=== PATIENT | female | born 1935 | race Caucasian/White ===

== ENCOUNTER 2019-10-24 18:58 | Outpatient (REF) | payer MEDICARE, BC, SELFPAY ==
[2019-10-24 19:59] LABS: Blood Urea Nitrogen 41 mg/dL (8-23); Calcium 9.5 mg/dL (8.5-10.5); Carbon Dioxide 22 mmol/L (22-29); Chloride 91 mmol/L (98-107); Glucose 136 mg/dL (65-115); NT Pro B Type Natriuretic Pept 5068 pg/mL (0-450); Osmolality Calculated 262 mOsm/kg (285-295); Sodium 126 mmol/L (136-145)
== END 2019-10-24 18:59 | disposition home or self-care (01) ==
LOC: LAB 18:58
PROVIDERS: Family Provider Family Medicine; PCP Family Medicine; Visit Provider Family Medicine
DX: Z01.89 Encounter for other specified special examinations (principal)
CPT/HCPCS: 80048; 83880

== ENCOUNTER 2020-01-23 21:09 | Inpatient (IN) | payer MEDICARE, BC, SELFPAY ==
[2020-01-23] VITALS (28 sets, daily range): BP systolic 132–144; BP diastolic 50–71; PULSE 31–46; RESP 16; O2SAT 72–100; BMI 29.5
--- NOTE | 2020-01-23 21:23 | CTR_ITS ---
PROCEDURE INFORMATION: Exam: CT Head Without Contrast Exam date and time: 01/23/2020 9:25 PM Age: 84 years old Clinical indication: Altered mental status/memory loss; Additional info: AMS TECHNIQUE: Imaging protocol: Computed tomography of the head without contrast. Radiation optimization: All CT scans at this facility use at least one of these dose optimization techniques: automated exposure control; mA and/or kV adjustment per patient size (includes targeted exams where dose is matched to clinical indication); or iterative reconstruction. COMPARISON: CT head wo con* [id number] 03/17/2019 5:21 PM RADIATION DOSE METRICS: Total DLP: 1907.54 mGy-cm FINDINGS: Brain: Advanced microangiopathy is noted in the frontal and parietal white matter and is greater on the right. There is generalized sulcal widening and ventricular enlargement throughout the cranial cavity. Ventricles: Ex vacuo dilatation. Bones/joints: Unremarkable. No acute fracture. Sinuses: Visualized sinuses are unremarkable. No fluid levels. Mastoid air cells: Visualized mastoid air cells are well aerated. Soft tissues: Unremarkable. Other findings: Moderately severe motion artifacts are present. Overall no significant change since March 2019. CT/CT head wo con* [id number] IMPRESSION: 1. No acute intracranial findings. 2. Advanced age related changes Radiation Dose CTDIVOL = (mGy): DLP = 1907.54 (mGy-cm)
--- NOTE | 2020-01-23 21:23 | XR_ITS ---
WS: [id number] XR chest 1V portable [id number] REASON FOR EXAM: ams FINDINGS: Comparisons were made to March 17, 2019. Diffuse perihilar congestive changes are noted with cardiomegaly and arteriosclerotic changes. XR/XR chest 1V portable [id number] IMPRESSION: Congestive heart failure.
--- NOTE | 2020-01-23 21:24 | ECG_ITS ---
Measurements Intervals [place] Rate: 46 P: [place]: 0 QRS: 95 QRSD: 90 T: 74 QT: 460 QTc: 406 Possible ATRIAL FIBRILLATION WITH SLOW VENTRICULAR RESPONSE BORDERLINE RIGHT AXIS DEVIATION [QRS AXIS > 90] NONSPECIFIC ST & T-WAVE ABNORMALITY ABNORMAL RHYTHM ECG Compared to ECG 03/18/2019 06:04:24 T-wave abnormality now present Heavy baseline artifact, need to repeat Electronically Signed On 01-24-2020 11:38:14 CDT by Lalo Maldonado M.D. [id number]
[2020-01-23] MEDS: morphine 4 mg/mL SDV 1 mL 2 MG IVP (21:54)
[2020-01-23 22:00] LABS: Basophils % 0.6 %; Eosinophils # 0.1 10^3/uL (0.0-0.8); Eosinophils % 3.4 %; Hematocrit 38.1 % (37.0-47.0); Hemoglobin 11.5 g/dL (11.5-15.3); Lymphocytes # 0.8 10^3/uL (0.8-4.8); Mean Corpuscular HGB Conc 30.2 g/dL (30.0-36.0); Mean Corpuscular Hemoglobin 24.3 pg (28.0-34.0); Mean Corpuscular Volume 80.4 fL (81-99); Monocytes # 0.4 10^3/uL (0.2-0.9); Monocytes % 11.4 %; Neutrophils # 2.2 10^3/uL (1.8-7.7); Neutrophils % 61.3 %; Nucleated Red Blood Cells % 0 %; Platelet Count 126 10^3/cmm (130-400); Red Blood Count 4.74 10^6/uL (4.1-5.3); Red Cell Distribution Width 18.6 % (12.1-15.1); White Blood Count 3.5 10^3/uL (4.0-10.0)
[2020-01-23 22:14] LABS: Lactate (Lactic Acid level) 1.2 mmol/L (0.5-2.2)
[2020-01-23 22:15] LABS: Troponin(5th) Baseline 58 ng/mL (0-10)
[2020-01-23 22:21] LABS: Alanine Aminotransferase 6 U/L (0-33); Albumin Level 3.9 g/dL (3.5-5.2); Alkaline Phosphatase 80 IU/L (35-105); Anion Gap 17.6 (5-19); Aspartate Amino Transferase 14 U/L (0-32); Blood Urea Nitrogen 63 mg/dL (8-23); Calcium 9.5 mg/dL (8.5-10.5); Carbon Dioxide 26 mmol/L (22-29); Chloride 93 mmol/L (98-107); Glucose 110 mg/dL (65-115); Magnesium 3.6 mg/dL (1.7-2.3); NT Pro B Type Natriuretic Pept 6966 pg/mL (0-450); Osmolality Calculated 272 mOsm/kg (285-295); Potassium 5.6 mmol/L (3.5-5.1); Sodium 131 mmol/L (136-145); Total Bilirubin 0.6 mg/dL (0.15-1.2); Total Protein 7.9 g/dL (6.6-8.7)
--- NOTE | 2020-01-23 22:36 | ED_ITS ---
HPI - SOB/Dyspnea General: Chief Complaint: Shortness of Breath/Dyspnea Stated Complaint: sob Time Seen by Provider: 01/23/20 21:23 History of Present Illness: HPI Narrative: 84[facility]-old [facility] patient. She has a standing DO NOT RESUSCITATE order. EMS was called because of period of decreased responsiveness with slurring of the speech. On their arrival, they found her to be bradycardic, moaning, and short of breath but talking. She was hypoxic. Associated symptoms: Deny abdominal pain, chest pain, dizziness, fever(s), nausea, palpitations or vomiting Review of Systems Const: Denies: fever Eyes: Denies: change in vision ENMT: Denies: painful swallowing Card: Reports: irregular heart rhythm and edema; Denies: chest pain or palpitations Resp: Reports: shortness of breath; Denies: productive cough, non-productive cough or wheezing GI: Denies: abdominal pain, nausea or vomiting : Denies: painful urination or blood in urine Musc: Reports: neck pain; Denies: back pain Skin/Breast: Denies: rash, itching or redness Neuro: Reports: confusion; Denies: headache or dizziness Psych: Denies: anxiety PFSH ED PFSH: Medical History Anxiety Arthritis Atrial fibrillation Back pain CHF (congestive heart failure) Preserved ejection fraction, moderate pulmonary hypertension, mild aortic valve stenosis Mild TR Chronic anticoagulation Coronary artery disease CVA (cerebral vascular accident) Right hemispheric stroke, residual left-sided weakness GERD (gastroesophageal reflux disease) Hyperkalemia Hypertension M?ni?re's disease Recurrent falls Ultrasound from 01/03 showed mild to moderate left renal atrophy Severe right renal atrophy Renal atrophy, bilateral Sleep apnea Thyroid disease Hypothyroidism TIA (transient ischemic attack) Surgical History H/O colonoscopy Polyp removal H/O knee surgery Previous back surgery Family History Other CAD (coronary artery disease) Hypertension Social History Smoking and tobacco status: never smoked Alcohol intake: never Substance/Drug Use: never Housing: [facility] Physical Exam Const: ORIENTATION/CONSCIOUSNESS: Yes oriented to person and Yes oriented to place; not oriented to time HENMT: COMMON NORMALS: normocephalic HEAD & SCALP: normocephalic FACE & SINUS: normal facial exam NOSE: no nasal discharge Eye: COMMON NORMALS: PERRL and EOMs intact bilaterally PUPIL: Yes PERRL Neck/C-Spine: GENERAL: No tracheal deviation Chest: COMMONS NORMALS: inspection of chest normal CHEST: No tenderness Resp: EFFORT & INSPECTION: Yes tachypneic, Yes respiratory distress, No retractions, No uses accessory muscles and No tracheal deviation AUSCULTATION: no rhonchi, no wheezes and diminished lung sounds Cardio: RATE: bradycardic RHYTHM: abnormal rhythm irregularly irregular PERIPHERAL PULSES: radial pulses present GI: INSPECTION: No abdominal distension AUSCULTATION: No hyperactive bowel sounds and No hypoactive bowel sounds PALPATION: No guarding and No rigid PERCUSSION: no dullness to percussion and no tympanic to percussion Neuro: SENSORIUM/ORIENTATION: Yes oriented to person, Yes oriented to place and No oriented to time Psych: COMMON NORMALS: mental status grossly normal Skin: COMMON NORMALS: no rashes or lesions noted GENERAL SKIN EXAM: no rashes or lesions noted Course Vital Signs: Vital signs: Vital Signs Pulse Rate 45 L 01/24/20 02:30 Respiratory Rate 16 01/24/20 02:30 Blood Pressure 152/72 01/24/20 02:30 Pulse Oximetry 93 01/24/20 02:30 MDM - SOB/Dyspnea MDM Narrative: Medical decision making narrative: 84[facility]-old [facility] from a [facility]. She is a DNR patient. She has profound irregular bradycardia. Her EKG has a noisy baseline, so it is difficult to assess for complete heart block, but it appears to be likely complete heart block on the monitor. She does take a high dose of carvedilol. She is in acute renal failure. She has a mildly high potassium with a mildly high magnesium. We have given insulin and glucose as well as albuterol. I doubt her potassium is high enough to cause this by itself. We will give her some Lasix, as she has pulmonary edema on chest x-ray and an increased BNP. She complains of an anginal type pain in her neck and left arm. Her first troponin was only 58 though. Her next 1 is pending. She will go to the ICU for close monitoring. She specifically told me in the room that she does not want medications to start her heart, she does not want to be shocked, and she does not want chest compressions or ventilation. Lab Data: Labs: Lab Results 01/23/20 01/23/20 01/23/20 Range/Units 21:32 21:32 21:32 WBC 3.5 L (4.0-10.0) 10^3/ uL RBC 4.74 (4.1-5.3) 10^6/u L Hgb 11.5 (11.5-15.3) g/dL Hct 38.1 (37.0-47.0) % MCV 80.4 L (81-99) fL MCH 24.3 L (28.0-34.0) pg MCHC 30.2 (30.0-36.0) g/dL RDW 18.6 H (12.1-15.1) % Plt Count 126 L (130-400) 10^3/c mm MPV 10.0 (7.4-10.4) fL Neut % (Auto) 61.3 % Lymph % (Auto) 23.0 % Will % (Auto) 11.4 % Eos % (Auto) 3.4 % Baso % (Auto) 0.6 % Neut # (Auto) 2.2 (1.8-7.7) 10^3/u L Lymph # (Auto) 0.8 (0.8-4.8) 10^3/u L Will # (Auto) 0.4 (0.2-0.9) 10^3/u L Eos # (Auto) 0.1 (0.0-0.8) 10^3/u L Baso # (Auto) 0.0 (0.0-0.1) 10^3/u L Nucleated RBC % (a uto) 0 % Nucleated RBCs # 0.0 /100WBC Sodium 131 L (136-145) mmol/L Potassium 5.6 H (3.5-5.1) mmol/L Chloride 93 L (98-107) mmol/L Carbon Dioxide 26 (22-29) mmol/L Anion Gap 17.6 (5-19) BUN 63 H (8-23) mg/dL Creatinine 3.7 H (0.5-0.9) mg/dL Glucose 110 (65-115) mg/dL Calculated Osmolal ity 272 L (285-295) mOsm/k g Lactate 1.2 (0.5-2.2) mmol/L Calcium 9.5 (8.5-10.5) mg/dL Phosphorus (2.5-4.5) mg/dL Magnesium 3.6 H (1.7-2.3) mg/dL Total Bilirubin 0.6 (0.15-1.2) mg/dL AST 14 (0-32) U/L ALT 6 (0-33) U/L Alkaline Phosphata se 80 (35-105) IU/L Troponin T Baselin e (0-10) ng/mL Troponin T 120 Min [place] (0-10) ng/mL Delta Troponin T (0-10) ABS# C-Reactive Protein 7.1 H (0.0-4.9) mg/L NT-Pro-B Natriuret Pep 6966 H (0-450) pg/mL Total Protein 7.9 (6.6-8.7) g/dL Albumin 3.9 (3.5-5.2) g/dL Globulin 4.0 (1.3-4.6) g/dL Urine Color (Yellow) Urine Appearance (CLEAR) Urine pH (5-7) Ur Specific Gravit y (1.005-1.030) Urine Protein (Negative) Urine Glucose (UA) (Normal) Urine Ketones (Negative) Urine Blood (Negative) Urine Nitrate (Negative) Urine Bilirubin (NEGATIVE) Urine Urobilinogen (Negative) mg/dL Ur Leukocyte Britney ase (Negative) Urine RBC (0-2) /hpf Urine WBC (0-5) /hpf Ur Squamous Epith Cells (0-5) Ur Transition Epit h Cell /hpf Urine Bacteria (NONE) 01/23/20 01/23/20 01/23/20 Range/Units 21:32 21:40 23:49 WBC (4.0-10.0) 10^3/ uL RBC (4.1-5.3) 10^6/u L Hgb (11.5-15.3) g/dL Hct (37.0-47.0) % MCV (81-99) fL MCH (28.0-34.0) pg MCHC (30.0-36.0) g/dL RDW (12.1-15.1) % Plt Count (130-400) 10^3/c mm MPV (7.4-10.4) fL Neut % (Auto) % Lymph % (Auto) % Will % (Auto) % Eos % (Auto) % Baso % (Auto) % Neut # (Auto) (1.8-7.7) 10^3/u L Lymph # (Auto) (0.8-4.8) 10^3/u L Will # (Auto) (0.2-0.9) 10^3/u L Eos # (Auto) (0.0-0.8) 10^3/u L Baso # (Auto) (0.0-0.1) 10^3/u L Nucleated RBC % (a uto) % Nucleated RBCs # /100WBC Sodium (136-145) mmol/L Potassium (3.5-5.1) mmol/L Chloride (98-107) mmol/L Carbon Dioxide (22-29) mmol/L Anion Gap (5-19) BUN (8-23) mg/dL Creatinine (0.5-0.9) mg/dL Glucose (65-115) mg/dL Calculated Osmolal ity (285-295) mOsm/k g Lactate (0.5-2.2) mmol/L Calcium (8.5-10.5) mg/dL Phosphorus (2.5-4.5) mg/dL Magnesium (1.7-2.3) mg/dL Total Bilirubin (0.15-1.2) mg/dL AST (0-32) U/L ALT (0-33) U/L Alkaline Phosphata se (35-105) IU/L Troponin T Baselin e 58 H (0-10) ng/mL Troponin T 120 Min [place] 53.57 H (0-10) ng/mL Delta Troponin T -4.43 L (0-10) ABS# C-Reactive Protein (0.0-4.9) mg/L NT-Pro-B Natriuret Pep (0-450) pg/mL Total Protein (6.6-8.7) g/dL Albumin (3.5-5.2) g/dL Globulin (1.3-4.6) g/dL Urine Color Yellow (Yellow) Urine Appearance Hazy A (CLEAR) Urine pH 5 (5-7) Ur Specific Gravit y 1.025 (1.005-1.030) Urine Protein Neg (Negative) Urine Glucose (UA) Norm (Normal) Urine Ketones Negative (Negative) Urine Blood Neg (Negative) Urine Nitrate Negative (Negative) Urine Bilirubin Neg (NEGATIVE) Urine Urobilinogen Norm (Negative) mg/dL Ur Leukocyte Britney ase Trace H (Negative) Urine RBC 0-4 H (0-2) /hpf Urine WBC 5-10 H (0-5) /hpf Ur Squamous Epith Cells 15-25 H (0-5) Ur Transition Epit h Cell 0-4 /hpf Urine Bacteria 4+ H (NONE) 01/23/20 Range/Units 23:49 WBC (4.0-10.0) 10^3/ uL RBC (4.1-5.3) 10^6/u L Hgb (11.5-15.3) g/dL Hct (37.0-47.0) % MCV (81-99) fL MCH (28.0-34.0) pg MCHC (30.0-36.0) g/dL RDW (12.1-15.1) % Plt Count (130-400) 10^3/c mm MPV (7.4-10.4) fL Neut % (Auto) % Lymph % (Auto) % Will % (Auto) % Eos % (Auto) % Baso % (Auto) % Neut # (Auto) (1.8-7.7) 10^3/u L Lymph # (Auto) (0.8-4.8) 10^3/u L Will # (Auto) (0.2-0.9) 10^3/u L Eos # (Auto) (0.0-0.8) 10^3/u L Baso # (Auto) (0.0-0.1) 10^3/u L Nucleated RBC % (a uto) % Nucleated RBCs # /100WBC Sodium (136-145) mmol/L Potassium (3.5-5.1) mmol/L Chloride (98-107) mmol/L Carbon Dioxide (22-29) mmol/L Anion Gap (5-19) BUN (8-23) mg/dL Creatinine (0.5-0.9) mg/dL Glucose (65-115) mg/dL Calculated Osmolal ity (285-295) mOsm/k g Lactate (0.5-2.2) mmol/L Calcium (8.5-10.5) mg/dL Phosphorus 5.5 H (2.5-4.5) mg/dL Magnesium (1.7-2.3) mg/dL Total Bilirubin (0.15-1.2) mg/dL AST (0-32) U/L ALT (0-33) U/L Alkaline Phosphata se (35-105) IU/L Troponin T Baselin e (0-10) ng/mL Troponin T 120 Min [place] (0-10) ng/mL Delta Troponin T (0-10) ABS# C-Reactive Protein (0.0-4.9) mg/L NT-Pro-B Natriuret Pep (0-450) pg/mL Total Protein (6.6-8.7) g/dL Albumin (3.5-5.2) g/dL Globulin (1.3-4.6) g/dL Urine Color (Yellow) Urine Appearance (CLEAR) Urine pH (5-7) Ur Specific Gravit y (1.005-1.030) Urine Protein (Negative) Urine Glucose (UA) (Normal) Urine Ketones (Negative) Urine Blood (Negative) Urine Nitrate (Negative) Urine Bilirubin (NEGATIVE) Urine Urobilinogen (Negative) mg/dL Ur Leukocyte Britney ase (Negative) Urine RBC (0-2) /hpf Urine WBC (0-5) /hpf Ur Squamous Epith Cells (0-5) Ur Transition Epit h Cell /hpf Urine Bacteria (NONE) Critical Care Time Critical Care Time: Critical Care Time: Yes Total Critical Care Time: 45 Attestation: This case had a high probability of a clinically significant, sudden, or life threatening deterioration of this patient's condition which required my full and direct attention, intervention and personal management. 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
[2020-01-23 22:42] LABS: Add Urine Microscopic? YES; Bilirubin Urine Neg (NEGATIVE); Blood Urine Neg (Negative); Glucose Urine UA Norm (Normal); Ketones Urine Negative (Negative); Leukocyte Esterase Urine Trace (Negative); Nitrate Urine Negative (Negative); Protein Urine Neg (Negative); Specific Gravity, Urine 1.025 (1.005-1.030); Urine Appearance Hazy (CLEAR); Urine Color Yellow (Yellow); Urobilinogen Urine Norm (Negative); pH Urine 5 (5-7)
[2020-01-23 22:50] LABS: RBC Urine 0-4 /hpf (0-2)
[2020-01-23 22:51] LABS: Add Urine Culture? No; Bacteria Urine 4+; Squamous Epithelial Cell Urine 15-25 (0-5); Transitional Epi Cells Urine 0-4 /hpf
--- NOTE | 2020-01-23 23:24 | ECG_ITS ---
Measurements Intervals [place] Rate: 49 P: [place]: 0 QRS: 96 QRSD: 101 T: 82 QT: 463 QTc: 419 Possible ATRIAL FIBRILLATION WITH SLOW VENTRICULAR RESPONSE BORDERLINE RIGHT AXIS DEVIATION [QRS AXIS > 90] NONSPECIFIC T-WAVE ABNORMALITY ABNORMAL RHYTHM ECG Compared to ECG 03/18/2019 06:04:24 T-wave abnormality now present Baseline artifact, need to repeat the study Electronically Signed On 01-24-2020 11:40:25 CDT by Lalo Maldonado M.D. [id number]
[2020-01-23 23:35] LABS: C Reactive Protein 7.1 mg/L (0.0-4.9)
--- NOTE | 2020-01-23 23:45 | P.HP_ITS ---
Providers/Chief Complaint Primary Care Provider: Diana Gil MD Chief Complaint: sob History of Present Illness Rosio Sauer is a 84 year old female carries diagnosis of preserved ejection fraction heart failure, hypothyroidism, CVA(left-sided residual weakness), atrial fibrillation, chronic anticoagulation resident of [facility] came in today after altered mental status. Patient is stating that for last 1 to 2 weeks, she is getting more lethargic, she has been noticing more leg swelling, she got Lasix 40 mg on every other day, she uses 2 L of oxygen [id number], lately she has been experiencing more orthopnea, PND. I called halfway to get the report, was told that for last few days most of her Coreg was on hold because of bradycardia. 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 When nurse checked on her around 6 PM tonight she was confused, had some slurring of speech, blood glucose was not checked there, pulse ox was 88% on 4 L, heart rate was in 30s, EMS was called. After evaluation halfway's documentation, seems like she received Coreg 50 mg twice a day today. Diagnostics in the ER revealed bradycardia heart rate in 30s, A. fib slow ventricular response, patient was confused, was complaining of shortness of breath, chest x-ray revealed pulmonary edema, she was given IV Lasix 60 mg along insulin, calcium gluconate and albuterol for hyperkalemia Because of persistent shortness of breath she was given atropine 0.5 mg IV At the time of my evaluation she was drowsy, oriented to time place and person She was able to tell me the phone number of her . I called her as well to update him about the critical bradycardia. Patient does not want us to use transcutaneous pacer, she is DNR/DNI. I discussed this with the patient, halfway and the . Review of Systems Const: Reports: body aches, change in appetite, change in weight, fatigue and daytime sleepiness; Denies: fever or chills Eyes: Denies: change in vision ENMT: Denies: throat pain Card: Reports: edema, swelling of feet/ankles and shortness of breath when lying down; Denies: chest pain, palpitations, irregular heart rhythm, syncope or pre-syncope Resp: Reports: shortness of breath; Denies: productive cough or non-productive cough GI: Denies: abdominal pain, nausea or vomiting : Denies: flank pain, difficulty urinating or urinary frequency Musc: Reports: muscle cramps Skin/Breast: Denies: rash Neuro: Denies: headache, dizziness or slurred speech Psych: Reports: depression Endo: Denies: excessive urination [place]/Lymph: Reports: easy bruising All/Imm: Denies: hives PFSH Acute PFSH: Medical History Anxiety Arthritis Atrial fibrillation Back pain CHF (congestive heart failure) Preserved ejection fraction, moderate pulmonary hypertension, mild aortic valve stenosis Mild TR Chronic anticoagulation Coronary artery disease CVA (cerebral vascular accident) Right hemispheric stroke, residual left-sided weakness GERD (gastroesophageal reflux disease) Hyperkalemia Hypertension M?ni?re's disease Recurrent falls Ultrasound from 01/03 showed mild to moderate left renal atrophy Severe right renal atrophy Renal atrophy, bilateral Sleep apnea Thyroid disease Hypothyroidism TIA (transient ischemic attack) Surgical History H/O colonoscopy Polyp removal H/O knee surgery Previous back surgery Family History Other CAD (coronary artery disease) Hypertension Social History Smoking and tobacco status: never smoked Alcohol intake: never Substance/Drug Use: never Housing: [facility] Vitals/I&O/Wt Last Vital Signs Pulse 34 L 01/23/20 21:11 Resp 16 01/23/20 21:11 BP 132/71 01/23/20 21:11 Pulse Ox 95 01/23/20 21:11 Weight last 48 hrs Weight 90.718 kg Physical Exam Narrative: EXAM NARRATIVE: Head to toe examination Patient seems very lethargic, obese female currently saturating well on 4 L nasal cannula Heart rate fluctuating between 35-40, EKG shows A. fib with slow ventricular response She is complaining of shortness of breath however no active tachypnea Variable S1-S2, slow response, positive congestive heart failure signs Bilateral lower extremity edema 2+ Abdomen soft, nontender, nondistended, visceral obesity, bowel sounds sluggish Bilateral rhonchi and crackles diffuse on anterior and lateral auscultation Patient is drowsy but able to follow commands and give me above-mentioned details, has left-sided residual weakness from previous stroke, Seems to have depressed mood No sign of ischemia gangrene of ulcer or lower extremity Pertinent negative No hemodynamic instability No confusion No signs of UTI Data : 01/23/20 21:32 01/23/20 21:32 Micro: Microbiology 01/23/20 09:37 Blood Culture - Preliminary Blood SPECIMEN COLLECTED 01/23/20 09:37 Blood Culture - Preliminary Blood SPECIMEN COLLECTED A&P Assessment and plan (1) Symptomatic bradycardia: Status: Acute (2) Atrial fibrillation with slow ventricular response: Status: Acute (3) DNR (do not resuscitate): Status: Acute (4) Acute exacerbation of CHF (congestive heart failure): Status: Acute (5) MYRON (acute kidney injury): Status: Acute (6) Hyperkalemia: Status: Acute Additional A&P Information A. fib with slow ventricular response Bradycardia secondary to Coreg use, she received 100 mg of Coreg yesterday as per halfway documentation Currently no hemodynamic instability but she is complaining of orthopnea Patient is refusing transcutaneous pacing, patient and agreeable with medical management for now Hold beta-thalia IV 0.5 mg of atropine given in the ER because of symptomatic bradycardia Check TSH No electrolyte abnormality noticed Troponin with negative delta, no active chest pain Repeat serial EKGs with serial troponins Patient carries a guarded prognosis because of comorbid conditions, halfway and notified Admit to ICU, monitor her vitals, she might need dopamine drip overnight Preserved ejection fraction acute heart failure exacerbation with underlying moderate pulmonary hypertension Etiology seems to be bradycardia Needs to rule out high degree AV block Would start her on Bumex instead of Lasix Giron catheter for accurate urine output Acute on chronic kidney disease due to CHF exacerbation Cardiorenal etiology, Monitor creatinine with diuresis Hold spironolactone Hyperkalemia secondary to MYRON and spironolactone Patient will be given Kayexalate p.o. She has received insulin, dextrose and albuterol in the ER for hyperkalemia Obstructive sleep apnea/moderate, hypertension She uses 2 to 3 L of oxygen [id number] DNR/DNI, patient refusing transcutaneous pacing, okay with medical management for bradycardia, does not want to use BiPAP Cardiac diet DVT prophylaxis: Heparin Attestations Medical Necessity Statement*: Anticipating stay in the hospital cross more than 2 midnights for symptomatic bradycardia and active CHF exacerbation, she carries guarded prognosis due to comorbid conditions Time Spent in Patient Care: 50 Coding Level of Care Code 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
[2020-01-23] MEDS: dextrose 50% syringe 50 mL IVP (23:46)
[2020-01-23] MEDS: insulin regular-human 100 units/1 mL 10 UNIT IVP (23:48)
[2020-01-23] MEDS: FUROsemide 10 mg/mL SDV 10mL 60 MG IVP (23:50)
[2020-01-24] VITALS (101 sets, daily range): BP systolic 100–164; BP diastolic 50–84; PULSE 31–73; RESP 12–24; TEMP 36.4–36.8; O2SAT 88–97
[2020-01-24 00:17] LABS: Phosphorus 5.5 mg/dL (2.5-4.5)
[2020-01-24 00:18] LABS: Troponin 5 2HR 53.57 ng/mL (0-10)
[2020-01-24 00:23] LABS: Troponin 5 2HR Delta -4.43 ABS# (0-10)
[2020-01-24] MEDS: atropine 0.1 mg/mL Syr 10 mL 0.5 MG IVP (00:39)
[2020-01-24] MEDS: ipratropium-albuterol 3 mL Neb INHALATION ×2 (02:18→07:50)
[2020-01-24] MEDS: DOPamine drip 400 MG/250 ML PREMIX 17.2 MG IV (02:57)
[2020-01-24] MEDS: levothyroxine 25 mcg Tablet PO (03:03)
[2020-01-24] MEDS: sodium polystyrene sulfonate 15 gm/60 mL Btl PO (03:03)
--- NOTE | 2020-01-24 03:24 | ECG_ITS ---
Measurements Intervals [place] Rate: 58 P: [place]: 0 QRS: 103 QRSD: 101 T: 35 QT: 441 QTc: 436 ATRIAL FIBRILLATION WITH SLOW VENTRICULAR RESPONSE PATTERN CONSISTENT WITH PULMONARY DISEASE POSSIBLE RIGHT VENTRICULAR HYPERTROPHY [SOME/ALL OF: PROMINENT R IN V1, LATE TRANSITION, RAD, BAM, SSS] MODERATE ST DEPRESSION [0.05+ mV ST DEPRESSION] Compared to ECG 03/18/2019 06:04:24 ST (T wave) deviation now present Electronically Signed On 01-24-2020 11:40:31 CDT by Lalo Maldonado M.D. [id number]
[2020-01-24] MEDS: ondansetron 2 mg/ML SDV 2 mL 4 MG IVP (03:40)
[2020-01-24 03:48] LABS: Basophils % 0.2 %; Hematocrit 38.4 % (37.0-47.0); Hemoglobin 11.7 g/dL (11.5-15.3); Lymphocytes # 0.7 10^3/uL (0.8-4.8); Lymphocytes % 17.8 %; Mean Corpuscular HGB Conc 30.5 g/dL (30.0-36.0); Mean Corpuscular Hemoglobin 24.7 pg (28.0-34.0); Mean Corpuscular Volume 81.2 fL (81-99); Mean Platelet Volume 9.9 fL (7.4-10.4); Monocytes # 0.4 10^3/uL (0.2-0.9); Monocytes % 9.4 %; Neutrophils # 2.9 10^3/uL (1.8-7.7); Neutrophils % 71.4 %; Nucleated Red Blood Cells % 0 %; Platelet Count 123 10^3/cmm (130-400); Red Blood Count 4.73 10^6/uL (4.1-5.3); Red Cell Distribution Width 18.5 % (12.1-15.1)
[2020-01-24 03:58] LABS: Troponin 5 6HR 57.84 ng/mL (0-10)
[2020-01-24 04:02] LABS: Troponin 5 6HR Delta -0.16 ng/L (0-12)
[2020-01-24 04:11] LABS: Anion Gap 16.2 (5-19); Blood Urea Nitrogen 70 mg/dL (8-23); Calcium 10.4 mg/dL (8.5-10.5); Carbon Dioxide 26 mmol/L (22-29); Chloride 93 mmol/L (98-107); Glucose 81 mg/dL (65-115); Osmolality Calculated 268 mOsm/kg (285-295); Potassium 5.2 mmol/L (3.5-5.1); Sodium 130 mmol/L (136-145)
[2020-01-24 04:28] LABS: Thyroid Stimulating Hormone 3.67 uIU/mL (0.27-4.20)
[2020-01-24 04:48] LABS: ABG PCO2 56.9 mmHg (35-45); ABG PH Result 7.31 (7.35-7.45); Arterial Blood Gas Hematocrit 37.1 % (37-47); Base Excess ABG 1.3 mmol/L (-2.0-2.0); Blood Gas Allen Test Pos; Blood Gas Sample Site Radial, right; Blood Gas Sample Type Arterial; HCO3 ABG 28.6 mmol/L (22-26); Oxygen Device NC; PO2 ABG 58.2 mmHg (80.0-100.0)
[2020-01-24] MEDS: brimonidine 0.2% Op Soln 5 mL Btl 1 DROP EYE-LEFT (09:09)
[2020-01-24] MEDS: latanoprost 0.005% Op Soln 2.5 mL Btl 1 DROP EYE-LEFT (09:10)
[2020-01-24] MEDS: dorzolamide 2% Op Soln 10 mL Btl 1 DROP EYE-LEFT (09:11)
[2020-01-24] MEDS: apixaban 5 mg Tablet 2.5 MG PO ×2 (09:12→17:47)
[2020-01-24] MEDS: bumetanide 1 mg Tablet PO (09:13)
--- NOTE | 2020-01-24 11:04 | P.PN_ITS ---
Subjective Subjective: Interval history: She is somnolent, wakes up to loud voice, touch, but sometimes falls asleep mid question, other times does not answer. When asked if she is always a start, replies pretty much . During examination, trying to move her left arm, she screams out in pain, states that her elbow has been hurting for several days. She is not sure whether she may have hurt it somewhere. Per discussion with her she has been sleeping quite a bit during the day time ever since her stroke in 2014. Vitals/I&O/Wt Last Vital Signs Temp 97.6 F 01/24/20 08:00 Pulse 53 L 01/24/20 10:46 Resp 17 01/24/20 09:15 BP 130/61 01/24/20 10:30 Pulse Ox 93 01/24/20 10:46 01/23/20 01/24/20 01/24/20 22:59 06:59 14:59 Intake Total 120 / 120 295.593 / 295.593 Output Total 400 / 400 Balance -280 / -280 295.593 / 295.593 Weight last 48 hrs Weight 91.898 kg Weight 90.718 kg Physical Exam Const: COMMON NORMALS: no apparent distress ORIENTATION/CONSCIOUSNESS: Yes oriented to person and Yes oriented to place; not oriented to time HENMT: COMMON NORMALS: oropharynx normal Resp: COMMON NORMALS: normal respiratory effort (with nasal cannula) AUSCULTATION: diminished lung sounds bilateral in the lower lung nugent Cardio: COMMON NORMALS: S1 normal heart sound, S2 normal heart sound and no murmurs RHYTHM: abnormal rhythm irregularly irregular HEART SOUNDS: S1 normal and S2 normal GI: COMMON NORMALS: normal to inspection, nondistended, normoactive bowel sounds, soft to palpation and non-tender PALPATION: Yes soft Extremity: COMMON NORMALS: no joint enlargement GENERAL: Yes edema (4+ lower extremities, anasarca, some upper extremity edema) RIGHT UPPER EXTREMITY: Yes elbow joint LEFT UPPER EXTREMITY: Yes elbow joint (tender to passive range of motion, no erythema, warmth, difficult to assess swelling with anasarca) Neuro: COMMON NORMALS: moves all extremities SENSORIUM/ORIENTATION: Yes oriented to person, Yes oriented to place and No oriented to time Skin: COMMON NORMALS: no rashes or lesions noted GENERAL SKIN EXAM: no rashes or lesions noted Data : 01/24/20 03:33 01/24/20 03:33 Micro: Microbiology 01/23/20 21:37 Blood Culture - Preliminary Blood SPECIMEN COLLECTED 01/23/20 21:37 Blood Culture - Preliminary Blood SPECIMEN COLLECTED A&P Assessment and plan (1) Symptomatic bradycardia: HR better but still requiring dopamine drip. Currently on 5 and still noted to have at times heart rates down into the 50s per his RN. Reportedly has received carvedilol last night. At this time will continue supportive care, monitoring while carvedilol is wearing off. Per group home the bradycardia is newer problem, although has had reported slow heart rates back in December, and prior to that in November, but only single values down into mid 40s. It appears she may have developed sick sinus syndrome with A. fib, with slow ventricular response on EKG. Does not appear to have cardiac ischemia, with troponin mildly elevated, but without peak, does not have chest pain. TSH is normal, although did have hyperkalemia on presentation which may have contributed. Received Kayexalate. Recheck potassium level. Discussed at length with her . Briefly touched base with our on-call photovoltaic testing technician. At this time it is difficult to say whether she will in fact need a pacemaker. For now we may watch her HR off carvedilol as she is on quite a large dose of 50mg BID and with hypercalemia. Discussed with the that if she is still not improving, pacemaker could be considered at that time. 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 She verbalized understanding, and agreement with plan to continue current care, revisit the discussion in case she is not improving. Status: Acute (2) Atrial fibrillation with slow ventricular response: Possible SSS. Monitor. Status: Acute (3) Acute exacerbation of CHF (congestive heart failure): Bilateral pulmonary edema, elevated BNP, although in the setting of chronic kidney disease, but does have anasarca, 4+ lower extremity edema up to upper thighs, some edema of upper extremities as well. Acute diastolic congestive heart failure exacerbation, possibly triggered by episode of severe bradycardia. At group home I see she is on Lasix 40 mg every other day. She does have chronic kidney disease, and previously was close to getting dialysis, although renal function appears had stabilized at time. In the hospital here I see she was transitioned to Bumex 1 mg by mouth, however, I do not see that she has put out very much urine despite also receiving 60 mg IV push Lasix. At this time will transition to IV Bumex, for now we will give 1 mg, and continued every 12 hour intervals, monitor response, and with CKD potentially may need to increase the dose further. Prescription with her , when considering hemodialysis she had previously declined stating she would not want to go on dialysis in case she reached ESRD. Assess TTE Recently has been chronically on 2 L of oxygen, but did have to increase to 4 L today prior to admission. Status: Acute (4) MYRON (acute kidney injury): MYRON on CKD. states she was close to needing hemodialysis, although declined stating she would Status: Acute (5) Hyperkalemia: Received dextrose, insulin, Kayexalate. Recheck potassium level. Switch to Bumex IV. Hold spironolactone. Status: Acute (6) Thrombocytopenia: Incidentally noted, platelets 126,000 on presentation, today 123,000. Unclear cause, previously normal platelets back in March 2019. Spironolactone in some instances can cause thrombocytopenia. For now it is being held due to hyperkalemia. We will review other medications with pharmacy. We will request peripheral smear. With history of pulmonary hypertension, currently with anasarca, will assess TTE for possible right heart failure, limited abdominal ultrasound to assess for splenomegaly. Status: Acute (7) Pulmonary hypertension: Noted on prior TTE Status: Acute (8) Declining functional status: It appears that over the past month or so she was noted with declining functional status at the group home. Her has not been able to visit her there due to visitation restrictions from COVID-19. It appears she has been less independent, less communicative. Requiring higher level of care. Here in hospital to me she is oriented to place, but does not remember the year. Asking group home this appears not to be uncommon there. I suspect she may have some chronic cognitive dysfunction, perhaps early dementia is possible. Status: Acute (9) DNR (do not resuscitate): Status: Acute Attestations Medical Necessity Statement*: Continue admission versus management of episode of severe bradycardia, congestive heart failure exacerbation, acute kidney injury on chronic kidney disease and other conditions as above. Coding Level of Care Code Acute Elevator Builder for Delroyg Fwd Exam Comprehensive Diagnoses Symptomatic bradycardia R00.1 Atrial fibrillation with slow ventricular response I48.91 Acute exacerbation of CHF (congestive heart failure) I50.9 MYRON (acute kidney injury) N17.9 Hyperkalemia E87.5 Thrombocytopenia D69.6 Pulmonary hypertension I27.20 Declining functional status R53.81 DNR (do not resuscitate) Z66
--- NOTE | 2020-01-24 11:04 | XR_ITS ---
WS: [id number] XR elbow LT min 3V* [id number] REASON FOR EXAM: pain at least several days, may be longer FINDINGS: There is marked soft tissue edema seen throughout the elbow. There is osteopenic changes also noted. There is no destructive changes or osteomyelitis seen. There were no definite fractures noted. XR/XR elbow LT min 3V* [id number] IMPRESSION: No fractures of the elbow. Marked edema versus hemorrhage into the subcutaneous area involving the elbow r egion. Soft tissue swelling is evident.
[2020-01-24 12:07] LABS: Anion Gap 18.5 (5-19); Blood Urea Nitrogen 72 mg/dL (8-23); Calcium 10.3 mg/dL (8.5-10.5); Carbon Dioxide 26 mmol/L (22-29); Chloride 93 mmol/L (98-107); Glucose 124 mg/dL (65-115); Osmolality Calculated 275 mOsm/kg (285-295); Potassium 5.5 mmol/L (3.5-5.1); Sodium 132 mmol/L (136-145)
[2020-01-24] MEDS: bumetanide 0.25 mg/mL SDV 10 mL 1 MG IV (12:36)
--- NOTE | 2020-01-24 12:41 | USCV_ITS ---
Rosio Sauer Age: 84 Gender: F : 1935 Exam Date: 01/24/2020 15:02 Ordering Phys: Wilber Black MD Technologist: Ashley Wadsworth Exam Location: [facility] [place] Indication: CHF, ? Right heart failure BP: 156 / 65 HR: 78 Rhythm: Atrial fibrillation Technical Quality: Very technically difficult study MEASUREMENTS (Male / Female) Normal Values 2D ECHO LV Diastolic Diameter PLAX 3.9 cm 4.2 - 5.9 / 3.9 - 5.3 cm LV Systolic Diameter PLAX 2.4 cm LV Chamber Size 3.8 cm IVS Diastolic Thickness 0.7 cm 0.6 - 1.0 / 0.6 - 0.9 cm IVS Systolic Thickness 1.1 cm LVPW Diastolic Thickness 0.8 cm 0.6 - 1.0 / 0.6 - 0.9 cm LVPW Systolic Thickness 1.2 cm RV Chamber Size 3.1 cm LVOT Diameter 2.0 cm LV Ejection Fraction 2D Teich 68.1 % LA Diameter 4.9 cm LA Width 3.0 cm LA Height 5.7 cm RA Width 3.0 cm RA Height 6.1 cm Aorta at Sinotubular Diameter 2.4 cm M-MODE LV Diastolic Diameter MM 4.9 cm 4.2 - 5.9 / 3.9 - 5.3 cm LV Systolic Diameter MM 3.0 cm LV Ejection Fraction MM Teich 68.6 % IVS Diastolic Thickness MM 0.8 cm 0.6 - 1.0 / 0.6 - 0.9 cm IVS Systolic Thickness MM 1.2 cm LVPW Diastolic Thickness MM 1.3 cm 0.6 - 1.0 / 0.6 - 0.9 cm LVPW Systolic Thickness MM 1.6 cm RV Diastolic Diameter MM 3.0 cm Aortic Annulus Diameter 2.9 cm LA Ao Ratio MM 1.7 MV E Point Septal Separation 0.3 cm DOPPLER AV Peak Velocity 108.0 cm/s LVOT Peak Velocity 66.0 cm/s AV Area Cont Eq vti 2.0 cm squared AV Area Cont Eq pk 1.9 cm squared MV Area PHT 6.5 cm squared MV E' Velocity 133.0 cm/s TR Peak Velocity 327.0 cm/s TR Peak Gradient 42.7 mmHg TR Mean Velocity 252.0 cm/s TR Mean Gradient 26.3 mmHg TR Velocity Time Integral 113.4 cm TV Peak E Velocity 39.0 cm/s PV Peak Velocity 66.0 cm/s RV Acceleration Time 0.1 s RV Ejection Time 0.3 s RV AcT/ET 0.3 FINDINGS Left Ventricle Normal left ventricular size and systolic function, EF 55%.abnormal septal motion consistent with conduction abnormality. Right Ventricle Mildly increased right ventricular size. Right Atrium Possibly of normal size Left Atrium Mildly increased left atrial size. Mitral Valve Thickened mitral valve. Mild to moderate mitral valve regurgitation. Aortic Valve Mild aortic valve regurgitation. Thickened aortic valve. Tricuspid Valve Mild tricuspid valve regurgitation. Estimated pulmonary artery peak systolic pressure of 50 mmHg Pulmonic Valve Mild pulmonary valve regurgitation. Pericardium No pericardial effusion. Aorta Normal aortic annulus size. CONCLUSIONS Normal left ventricular size and systolic function, EF 55%. Abnormal septal motion consistent with conduction abnormality. Thickened mitral valve. Mild to moderate mitral valve regurgitation. Mild aortic valve regurgitation. Thickened aortic valve. Mild tricuspid valve regurgitation. Pulmonary hypertension with an estimated pulmonary artery peak systolic pressure of 50 mmHg There is no pericardial effusion. Compared to the previous study from a 02/07/2019, there may not be a significant change Dr Lalo Maldonado MD [facility] (Electronically Signed) Final Date: 25 Jan 2020 10:32 S
--- NOTE | 2020-01-24 12:42 | USR_ITS ---
PROCEDURE INFORMATION: Exam: US Abdomen Limited Exam date and time: 01/24/2020 3:36 PM Age: 84 years old Clinical indication: Abnormal findings; Abnormal lab test; Other: Abnormal platelets; Additional info: Thrombocytopenia - R heart failure w splenomegaly? TECHNIQUE: Imaging protocol: Real-time ultrasound of the abdomen with image documentation. Examination is focused on the region of clinical interest (left upper quadrant). COMPARISON: US Renal Kidney Structu* [id number] 12/29/2018 2:12 PM FINDINGS: Nonenlarged spleen measuring 3.8 cm long ( 3.8 x 7.3 x 3.4 cm). Moderate sized left pleural effusion. US/US abdomen limited [id number] IMPRESSION: Nonenlarged spleen. Left pleural effusion.
[2020-01-24 13:53] LABS: LAB Peripheral Smear Sent for Review
[2020-01-24] MEDS: DOPamine drip 400 MG/250 ML PREMIX 17 MG IV (16:58)
[2020-01-24 18:29] LABS: Anion Gap 18.4 (5-19); Blood Urea Nitrogen 69 mg/dL (8-23); Calcium 9.3 mg/dL (8.5-10.5); Carbon Dioxide 25 mmol/L (22-29); Chloride 93 mmol/L (98-107); Glucose 108 mg/dL (65-115); Osmolality Calculated 272 mOsm/kg (285-295); Potassium 5.4 mmol/L (3.5-5.1); Sodium 131 mmol/L (136-145)
[2020-01-24] MEDS: morphine 4 mg/mL SDV 1 mL 2 MG IVP (23:59)
[2020-01-25] VITALS (37 sets, daily range): BP systolic 109–157; BP diastolic 48–97; PULSE 55–74; RESP 14–32; TEMP 36.4–37.1; O2SAT 91–95
[2020-01-25] MEDS: bumetanide 0.25 mg/mL SDV 10 mL 1 MG IV
[2020-01-25 04:49] LABS: Basophils % 0.4 %; Eosinophils # 0.1 10^3/uL (0.0-0.8); Eosinophils % 2.3 %; Hematocrit 37.8 % (37.0-47.0); Hemoglobin 11.3 g/dL (11.5-15.3); Lymphocytes % 19.2 %; Mean Corpuscular HGB Conc 29.9 g/dL (30.0-36.0); Mean Corpuscular Hemoglobin 23.6 pg (28.0-34.0); Mean Corpuscular Volume 78.9 fL (81-99); Mean Platelet Volume 10.1 fL (7.4-10.4); Monocytes # 0.7 10^3/uL (0.2-0.9); Monocytes % 13.9 %; Neutrophils # 3.4 10^3/uL (1.8-7.7); Neutrophils % 63.8 %; Nucleated Red Blood Cells % 0 %; Platelet Count 127 10^3/cmm (130-400); Red Blood Count 4.79 10^6/uL (4.1-5.3); Red Cell Distribution Width 18.4 % (12.1-15.1); White Blood Count 5.3 10^3/uL (4.0-10.0)
[2020-01-25 05:08] LABS: Anion Gap 16.2 (5-19); Blood Urea Nitrogen 75 mg/dL (8-23); Calcium 10.1 mg/dL (8.5-10.5); Carbon Dioxide 27 mmol/L (22-29); Chloride 93 mmol/L (98-107); Glucose 103 mg/dL (65-115); Osmolality Calculated 272 mOsm/kg (285-295); Potassium 5.2 mmol/L (3.5-5.1); Sodium 131 mmol/L (136-145)
--- NOTE | 2020-01-25 06:00 | XR_ITS ---
WS: [id number] XR chest 1V portable [id number] REASON FOR EXAM: Hypoxia FINDINGS: Bilateral pleural effusion with pulmonary edema is again noted. Cardiomegaly with noted. The overall appearance the chest is similar to January 23, 2020. XR/XR chest 1V portable [id number] IMPRESSION: Persistent profuse congestive heart failure.
[2020-01-25] MEDS: DOPamine drip 400 MG/250 ML PREMIX 36.4 MG IV (08:31)
[2020-01-25] MEDS: latanoprost 0.005% Op Soln 2.5 mL Btl 1 DROP EYE-LEFT (09:07)
[2020-01-25] MEDS: dorzolamide 2% Op Soln 10 mL Btl 1 DROP EYE-LEFT (09:07)
[2020-01-25] MEDS: brimonidine 0.2% Op Soln 5 mL Btl 1 DROP EYE-LEFT (09:07)
[2020-01-25] MEDS: sodium polystyrene sulfonate 15 gm/60 mL Btl PO (09:08)
[2020-01-25] MEDS: apixaban 5 mg Tablet 2.5 MG PO ×2 (09:08→18:29)
--- NOTE | 2020-01-25 09:48 | P.CONIM_ITS ---
Providers/Reason For Consult Consulting Physican/Specialty*: Esha Jackson DO, telenephrology Reason for Consult*: CKD Attending Physician: Wilber Black Primary Care Provider: Diana Gil MD History of Present Illness History of Present Illness Rosio Sauer is a 84 year old female presented from [facility]ED[facility] AT [facility] with symptomatic bradycardia, CHF. Review of Systems Const: Reports: fatigue Card: Reports: edema; Denies: chest pain Resp: Reports: shortness of breath Musc: Reports: neck pain and back pain Meds/Allergies Home Medications and Allergies Home Medications Medication Instructions Recorded Confirmed Last Taken Type acetaminophen [Tylenol] 650 mg PO QID PRN 01/24/20 01/24/20 01/22/20 23:30 History alprazolam [Xanax] 0.25 mg PO BID PRN 01/24/20 01/24/20 01/23/20 05:00 History amlodipine [Norvasc] 10 mg PO DAILY 01/24/20 01/24/20 01/23/20 09:00 History apixaban [Eliquis] 2.5 mg PO BID 01/24/20 01/24/20 01/23/20 16:00 History brimonidine 1 drp OPHTHALMIC (EYE) BID 01/24/20 01/24/20 01/23/20 16:00 History carvedilol 50 mg PO BID 01/24/20 01/24/20 01/23/20 16:00 History dorzolamide 1 drp OPHTHALMIC (EYE) TID 01/24/20 01/24/20 01/23/20 14:30 History furosemide [Lasix] 40 mg PO EVERY OTHER DAY 01/24/20 01/24/20 01/23/20 09:00 History hydrocodone-acetaminophen 1 tab PO BID PRN 01/24/20 01/24/20 01/23/20 05:00 History ipratropium-albuterol 3 ml INHALATION Q6H PRN 01/24/20 01/24/20 01/23/20 04:30 History latanoprost 1 drp OPHTHALMIC (EYE) BEDTIME 01/24/20 01/24/20 01/23/20 18:30 History levothyroxine 25 mcg PO 0600 01/24/20 01/24/20 01/23/20 05:00 History magnesium oxide 400 mg PO DAILY 01/24/20 01/24/20 01/23/20 09:00 History polyethylene glycol 3350 [Miralax] 1 g PO DAILY 01/24/20 01/24/20 01/23/20 09:00 History spironolactone 25 mg PO DAILY 01/24/20 01/24/20 01/23/20 09:00 History tamsulosin 0.4 mg PO DAILY 01/24/20 01/24/20 01/23/20 08:51 History timolol maleate [Timoptic] 1 drp OPHTHALMIC (EYE) BID 01/24/20 01/24/20 01/23/20 18:00 History Allergies Allergy/AdvReac Type Severity Reaction Status Date / Time nitroglycerin Allergy Unknown Verified 01/24/20 02:28 tramadol Allergy Unknown Verified 01/24/20 02:28 Current Medications Current Medications Generic Name Dose Route Start Last Admin Trade Name Freq PRN Reason Stop Dose Admin Albuterol/Ipratropium 3 ml 01/24/20 01:40 01/24/20 07:50 Duoneb INHALATION 3 ml Q6H PRN Administration SHORTNESS OF BREATH Apixaban 2.5 mg 01/24/20 09:00 01/25/20 09:08 Eliquis PO 2.5 mg BID AGATA Administration Brimonidine Tartrate 1 drop 01/24/20 09:00 01/25/20 09:07 Alphagan EYE-LEFT 1 drop DAILY AGATA Administration Dorzolamide HCl 1 drop 01/24/20 09:00 01/25/20 09:07 Trusopt EYE-LEFT 1 drop DAILY AGATA Administration Dopamine HCl/Dextrose 400 mg in 250 mls @ 17.01 mls/hr 01/24/20 01:40 01/25/20 08:31 Intropin Drip IV 10.7 mcg/kg/min CONT AGATA 36.4 mls/hr Administration Protocol 5 MCG/KG/MIN Latanoprost 1 drop 01/24/20 09:00 01/25/20 09:07 Xalatan EYE-LEFT 1 drop DAILY AGATA Administration Ondansetron HCl 4 mg 01/24/20 03:34 01/24/20 03:40 Zofran IVP 4 mg Q6H PRN Administration NAUSEA AND VOMITING Polyethylene Glycol 17 gm 01/24/20 09:00 01/25/20 09:08 Miralax PO Not Given DAILY AGATA PFSH Acute PFSH: Medical History Anxiety Arthritis Atrial fibrillation Back pain CHF (congestive heart failure) Preserved ejection fraction, moderate pulmonary hypertension, mild aortic valve stenosis Mild TR Chronic anticoagulation Coronary artery disease CVA (cerebral vascular accident) Right hemispheric stroke, residual left-sided weakness GERD (gastroesophageal reflux disease) Hyperkalemia Hypertension M?ni?re's disease Pulmonary hyperinflation Recurrent falls Ultrasound from 01/03 showed mild to moderate left renal atrophy Severe right renal atrophy Renal atrophy, bilateral Sleep apnea Thyroid disease Hypothyroidism TIA (transient ischemic attack) Surgical History H/O colonoscopy Polyp removal H/O knee surgery Previous back surgery Family History Other CAD (coronary artery disease) Hypertension Social History Smoking and tobacco status: never smoked Alcohol intake: never Substance/Drug Use: never Housing: Retirement Vitals/I&O/Wt Last Vital Signs Temp 98.7 F 01/25/20 09:00 Pulse 59 L 01/25/20 09:00 Resp 20 H 01/25/20 09:00 BP 141/55 01/25/20 09:00 Pulse Ox 93 01/25/20 09:00 01/24/20 01/25/20 01/25/20 22:59 06:59 14:59 Intake Total 69.782 / 410.000 250 / 250 Output Total 225 / 225 400 / 625 Balance -155.218 / 185.000 -400 / -215.000 249 / 249 Weight last 48 hrs Weight 91.898 kg Weight 90.718 kg Physical Exam Const: GENERAL APPEARANCE: cooperative and anxious Resp: AUSCULTATION: rales Cardio: RHYTHM: abnormal rhythm Extremity: GENERAL: Yes edema Data Labs: Other Labs: 9: 7.31/57/58 calcium 10.1 Micro: Micro: Microbiology 01/23/20 21:40 Urine Culture - Pr eliminary Urine,Clean Catch Gram Negative R ods 01/23/20 21:37 Blood Culture - Pr eliminary Blood NEGATIVE TO MALU E 01/23/20 21:37 Blood Culture - Pr eliminary Blood NEGATIVE TO MALU E Other Data: Other data: CXR FINDINGS: Bilateral pleural effusion with pulmonary edema is again noted. Cardiomegaly with noted. The overall appearance the chest is similar to January 23, 2020. A&P Additional A&P Information 1. chronic kidney disease 2. CHF 3. mild hyperkalemia, hyponatremia 4. respiratory acidosis I discussed degree of renal impairment and dialysis with Rosio. It is unlikely dialysis will change overall prognosis. She states she does not want dialysis. Recommend: could try furosemide gtt 30 mg/hr x 12 hours. Restrict potassium in diet. Prognosis poor. Consult Attestations Medical Necessity Statement: critically ill Coding Level of Care Code Acute Customer Service Dispatcher for Zainab Rdz
--- NOTE | 2020-01-25 10:16 | P.PN_ITS ---
Subjective Subjective: Interval history: Today she is awake and alert, she knows she is in the hospital, she calls the year as 191. But she knows she is here due to her kidneys, due to shortness of breath, and has been having arm pain. She does not remember bumping her arm, but does think that it is possible that her arm was pulled during being moved at the assisted. Vitals/I&O/Wt Last Vital Signs Temp 98.7 F 01/25/20 09:00 Pulse 59 L 01/25/20 09:00 Resp 20 H 01/25/20 09:00 BP 141/55 01/25/20 09:00 Pulse Ox 93 01/25/20 09:00 01/24/20 01/25/20 01/25/20 22:59 06:59 14:59 Intake Total 69.782 / 410.000 250 / 250 Output Total 225 / 225 400 / 625 Balance -155.218 / 185.000 -400 / -215.000 249 / 249 Weight last 48 hrs Weight 91.898 kg Weight 90.718 kg Physical Exam Const: COMMON NORMALS: no apparent distress ORIENTATION/CONSCIOUSNESS: Yes oriented to person and Yes oriented to place; not oriented to time HENMT: COMMON NORMALS: oropharynx normal Resp: COMMON NORMALS: normal respiratory effort (with nasal cannula) AUSCULTATION: diminished lung sounds bilateral in the lower lung nugent Cardio: COMMON NORMALS: S1 normal heart sound, S2 normal heart sound and no murmurs RHYTHM: abnormal rhythm irregularly irregular HEART SOUNDS: S1 normal and S2 normal GI: COMMON NORMALS: normal to inspection, nondistended, normoactive bowel sounds, soft to palpation and non-tender PALPATION: Yes soft Extremity: COMMON NORMALS: no joint enlargement GENERAL: Yes edema (4+ lower extremities, anasarca, some upper extremity edema, worse on the L) Neuro: COMMON NORMALS: moves all extremities SENSORIUM/ORIENTATION: Yes oriented to person, Yes oriented to place and No oriented to time Skin: COMMON NORMALS: no rashes or lesions noted GENERAL SKIN EXAM: no rashes or lesions noted Data : 01/25/20 04:23 01/25/20 04:23 Micro: Microbiology 01/23/20 21:40 Urine Culture - Preliminary Urine,Clean Catch Gram Negative Rods 05/08/20 21:37 Blood Culture - Preliminary Blood NEGATIVE TO DATE 01/23/20 21:37 Blood Culture - Preliminary Blood NEGATIVE TO DATE A&P Assessment and plan (1) Symptomatic bradycardia: She is weaning down on dopamine. She was on a very high dose of carvedilol. It may be that it is taking a while to wear off. At the same time with some persistent hyperkalemia, will repeat Kayexalate. Appreciate nephrology assistance. Per assisted the bradycardia is newer problem, although has had reported slow heart rates back in December, and prior to that in November, but only single values down into mid 40s. It appears she may have developed sick sinus syndrome with A. fib, with slow ventricular response on EKG. Does not appear to have cardiac ischemia, with troponin mildly elevated, but without peak, does not have chest pain. TSH is normal, although did have hyperkalemia on presentation which may have contributed. Received Kayexalate. Recheck potassium level. Discussed at length with her . Briefly touched base with our on-call insights strategist. At this time it is difficult to say whether she will in fact need a pacemaker. For now we may watch her HR off carvedilol as she is on quite a large dose of 50mg BID and with hyperkalemia. Discussed with the that if she is still not improving, pacemaker could be considered at that time. 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 She verbalized understanding, and agreement with plan to continue current care, revisit the discussion in case she is not improving. For now continue the same given she is showing some gradual improvement and she was on very large doses. Status: Acute (2) Atrial fibrillation with slow ventricular response: Possible SSS. Monitor. Status: Acute (3) Acute exacerbation of CHF (congestive heart failure): She is now down to 4 L oxygen requirement by nasal cannula. Persistent pulmonary edema, pleural effusion on the left on chest x-ray. History Bumex dose was increased, today we will go up to 2 mg IV every 12 hours. Unfortunately not optimal response due to current kidney disease, and now also with some rising creatinine. Discussed with her that this may portend not a good prognosis. Appreciate also nephrology assessment. Bilateral pulmonary edema, elevated BNP, although in the setting of chronic kidney disease, but does have anasarca, 4+ lower extremity edema up to upper thighs, some edema of upper extremities as well. Acute diastolic congestive heart failure exacerbation, possibly triggered by episode of severe bradycardia. She does have chronic kidney disease, and previously was close to getting dialysis, although renal function appears had stabilized at time. Per discussion with her , when considering hemodialysis she had previously declined stating she would not want to go on dialysis in case she reached ESRD. Assess TTE Recently has been chronically on 2 L of oxygen, but did have to increase to 4 L today prior to admission. Status: Acute (4) MYRON (acute kidney injury): Appreciate nephrology assessment regarding MYRON on CKD, worsening of renal function with diuresis. MYRON on CKD. states she was close to needing hemodialysis, although declined stating she would Status: Acute (5) Hyperkalemia: Repeat Kayexalate due to persistent hyperkalemia, bradycardia. Bumex dose increased. Received dextrose, insulin, Kayexalate. Hold spironolactone. Status: Acute (6) Thrombocytopenia: Incidentally noted, platelets 126,000 on presentation, today 123,000. Unclear cause, previously normal platelets back in March 2019. Spironolactone in some instances can cause thrombocytopenia. For now it is being held due to hyperkalemia. On review with pharmacy does not appear any other medication should be contributing. Requested peripheral smear. With history of pulmonary hypertension, currently with anasarca, will assess TTE for possible right heart failure, although does not appear to have splenomegaly on ultrasound. Status: Acute (7) Pulmonary hypertension: Noted on prior TTE Status: Acute (8) Declining functional status: It appears that over the past month or so she was noted with declining functional status at the assisted. Her has not been able to visit her there due to visitation restrictions from COVID-19. It appears she has been less independent, less communicative. Requiring higher level of care. Here in hospital to me she is oriented to place, but does not remember the year. Asking assisted this appears not to be uncommon there. I suspect she may have some chronic cognitive dysfunction, perhaps early dementia is possible. Status: Acute (9) DNR (do not resuscitate): Status: Acute (10) Elbow pain, left: No fracture noted on x-ray. I am not sure the exact etiology. Perhaps this may be something like a sprain, with soft tissue edema noted on imaging. There is no erythema, no warmth. Left side arm is more swollen. It is tender on passive range of motion. If not improving, consider additional evaluation by orthopedics once she is a little bit more stable. Status: Acute Attestations Medical Necessity Statement*: Continue admission for assessment of management of symptomatic bradycardia, congestive heart failure acute on chronic, with acute on chronic kidney injury Coding Level of Care Code Acute Able Bodied Tankerman for g Fwd Diagnoses Symptomatic bradycardia R00.1 Atrial fibrillation with slow ventricular response I48.91 Acute exacerbation of CHF (congestive heart failure) I50.9 MYRON (acute kidney injury) N17.9 Hyperkalemia E87.5 Thrombocytopenia D69.6 Pulmonary hypertension I27.20 Declining functional status R53.81 DNR (do not resuscitate) Z66 Elbow pain, left M25.522
[2020-01-25] MEDS: lanolin oint 7 gm 1 APPLIC TOPICAL (14:38)
[2020-01-25] MEDS: acetaminophen 325 mg Tablet 650 MG PO ×2 (14:39→20:29)
[2020-01-25 18:58] LABS: Potassium 4.7 mmol/L (3.5-5.1)
[2020-01-25] MEDS: HYDROcodone-acetaminophen 5-325 mg Tablet 1 TAB PO ×2 (19:03→20:28)
[2020-01-26] VITALS (12 sets, daily range): BP systolic 112–156; BP diastolic 40–74; PULSE 48–64; RESP 14–22; TEMP 36.7–37; O2SAT 90–95
[2020-01-26] MEDS: HYDROcodone-acetaminophen 5-325 mg Tablet 1 TAB PO ×4 (00:28→22:15)
[2020-01-26] MEDS: OLANZapine 10 mg TABLET PO (01:18)
[2020-01-26] MEDS: HYDROmorphone 1 mg/mL INJ 1 mL 2 MG IVP (03:53)
[2020-01-26 04:27] LABS: Basophils % 0.4 %; Eosinophils # 0.1 10^3/uL (0.0-0.8); Eosinophils % 1.7 %; Hematocrit 37.6 % (37.0-47.0); Hemoglobin 11.5 g/dL (11.5-15.3); Lymphocytes # 1.1 10^3/uL (0.8-4.8); Lymphocytes % 21.7 %; Mean Corpuscular HGB Conc 30.6 g/dL (30.0-36.0); Mean Corpuscular Hemoglobin 24.3 pg (28.0-34.0); Mean Corpuscular Volume 79.5 fL (81-99); Mean Platelet Volume 9.7 fL (7.4-10.4); Monocytes # 0.7 10^3/uL (0.2-0.9); Monocytes % 14.2 %; Neutrophils # 3.2 10^3/uL (1.8-7.7); Neutrophils % 61.6 %; Nucleated Red Blood Cells % 0 %; Platelet Count 129 10^3/cmm (130-400); Red Blood Count 4.73 10^6/uL (4.1-5.3); Red Cell Distribution Width 18.4 % (12.1-15.1); White Blood Count 5.2 10^3/uL (4.0-10.0)
[2020-01-26 04:41] LABS: Anion Gap 17.3 (5-19); Blood Urea Nitrogen 64 mg/dL (8-23); Calcium 9.8 mg/dL (8.5-10.5); Carbon Dioxide 27 mmol/L (22-29); Chloride 92 mmol/L (98-107); Glucose 89 mg/dL (65-115); Osmolality Calculated 272 mOsm/kg (285-295); Potassium 4.3 mmol/L (3.5-5.1); Sodium 132 mmol/L (136-145)
--- NOTE | 2020-01-26 07:41 | PM.PN ---
Subjective Subjective: Interval history: Rosio awakens easily. She states the year is 1919. However, there are other responses are fairly accurate. She states she is nauseated. She knows she is in the hospital. She is concerned about the edema in her legs. Medications: Reviewed: Yes Vitals/I&O/Wt Last Vital Signs Temp 97.6 F 01/25/20 16:15 Pulse 59 L 01/26/20 05:48 Resp 16 01/26/20 05:48 BP 150/60 01/26/20 05:48 Pulse Ox 93 01/26/20 05:48 01/25/20 01/26/20 01/26/20 22:59 06:59 14:59 Intake Total 352.6 / 722.6 514.5 / 1237.1 Output Total 1040 / 1041 1625 / 2666 Balance -687.4 / -318.4 -1110.5 / -1428.9 Physical Exam Narrative: EXAM NARRATIVE: General exam is a white female, in no obvious respiratory distress Cardiovascular irregular, irregular Lungs diminished breath sounds at the bases but no wheezes Abdomen is soft positive bowel sounds Extremities 3+ edema bilaterally Data : 01/26/20 03:47 01/26/20 03:47 Micro: Microbiology 01/23/20 21:37 Blood Culture - Preliminary Blood Gram positive charley 01/23/20 21:40 Urine Culture - Preliminary Urine,Clean Catch Gram Negative Rods A&P Assessment and plan (1) Symptomatic bradycardia: Dopamine is currently at 3. Symptomatic bradycardia she came in with appears to be resolved. She is not hypotensive. I believe the dopamine can be weaned off if nephrology sees no reason for it. Hyperkalemia, which may have contributed to bradycardia has resolved Beta-thalia has been held TSH checked and normal Status: Acute (2) Atrial fibrillation with slow ventricular response: On anticoagulation. See notes above regarding discontinuation of carvedilol, issues with bradycardia and need for dopamine. Status: Acute (3) Acute exacerbation of CHF (congestive heart failure): Currently on a furosemide drip by nephrology. She is diuresed about 1500 cc. Renal function has not worsened. Requiring 4 L of oxygen. We will try to wean as possible. Pulmonary edema, pleural effusion noted on last x-ray consistent with CHF Last echocardiogram demonstrated preserved EF. Pulmonary hypertension was noted on last echocardiogram. She has not wanted hemodialysis. Status: Acute (4) MYRON (acute kidney injury): Appreciate nephrology consultation. Renal function slightly improved, with diuresis with IV Lasix drip Patient has declined dialysis currently. Status: Acute (5) Hyperkalemia: Resolved with discontinuation of spironolactone, Kayexalate, Lasix drip Status: Acute (6) Thrombocytopenia: Slightly low, stable Status: Acute (7) Pulmonary hypertension: Noted on transthoracic echocardiogram Status: Acute (8) Declining functional status: Consistent with cognitive dysfunction, possible mild delirium as well. Status: Acute (9) DNR (do not resuscitate): Status: Acute (10) Elbow pain, left: No fracture noted on x-ray. Per patient's description today I believe this may be improving slightly. Status: Acute Additional A&P Information History of hypertension. Antihypertensive held currently Obstructive sleep apnea DNR/DNI, patient refused transcutaneous pacing. DVT prophylaxis, apixaban Attestations Medical Necessity Statement*: Needs continued hospital stay, for treatment of CHF with IV diuretics Critical Care Time: 32 minutes spent in ICU care, reviewing record, interviewing patient, review of IV Lasix, as well as dopamine drips, etc. Coding Level of Care Code Acute Operator Command Support Systems for g Fwd Diagnoses Symptomatic bradycardia R00.1 Atrial fibrillation with slow ventricular response I48.91 Acute exacerbation of CHF (congestive heart failure) I50.9 MYRON (acute kidney injury) N17.9 Hyperkalemia E87.5 Thrombocytopenia D69.6 Pulmonary hypertension I27.20 Declining functional status R53.81 DNR (do not resuscitate) Z66 Elbow pain, left M25.522
[2020-01-26] MEDS: apixaban 5 mg Tablet 2.5 MG PO ×2 (09:42→18:47)
[2020-01-26] MEDS: cefTRIAXone 1,000 MG in sodium chloride 0.9% (plus) 50 ML 100 MG IV (09:45)
--- NOTE | 2020-01-26 09:45 | PM.PN ---
Subjective Subjective: Interval history: No new issues. Remains edematous, no SOB at rest. No other uremic Sx. UO looks good at 2666ml over the last 24hrs. Eating and drinking, a little confused. Medications: Reviewed: Yes Vitals/I&O/Wt Last Vital Signs Temp 98.1 F 01/26/20 08:00 Pulse 59 L 01/26/20 05:48 Resp 16 01/26/20 05:48 BP 150/60 01/26/20 05:48 Pulse Ox 93 01/26/20 05:48 01/25/20 01/26/20 01/26/20 22:59 06:59 14:59 Intake Total 352.6 / 722.6 514.5 / 1237.1 236 / 236 Output Total 1040 / 1041 1625 / 2666 Balance -687.4 / -318.4 -1110.5 / -1428.9 236 / 236 Physical Exam Narrative: EXAM NARRATIVE: Exam performed via telemed with aid of the bedside RN General exam is a white female, in no obvious respiratory distress Cardiovascular irregular, irregular Lungs diminished breath sounds at the bases but no wheezes Abdomen is soft positive bowel sounds Extremities 3+ edema bilaterally Const: COMMON NORMALS: no apparent distress GENERAL APPEARANCE: cooperative and anxious ORIENTATION/CONSCIOUSNESS: Yes oriented to person and Yes oriented to place; not oriented to time HENMT: COMMON NORMALS: normocephalic and oropharynx normal HEAD & SCALP: normocephalic FACE & SINUS: normal facial exam NOSE: no nasal discharge Eye: COMMON NORMALS: PERRL and EOMs intact bilaterally PUPIL: Yes PERRL Neck/C-Spine: GENERAL: No tracheal deviation Chest: COMMONS NORMALS: inspection of chest normal CHEST: No tenderness Resp: COMMON NORMALS: normal respiratory effort (with nasal cannula) EFFORT & INSPECTION: Yes tachypneic, Yes respiratory distress, No retractions, No uses accessory muscles and No tracheal deviation AUSCULTATION: rales, no rhonchi, no wheezes and diminished lung sounds bilateral in the lower lung nugent Cardio: COMMON NORMALS: S1 normal heart sound, S2 normal heart sound and no murmurs RATE: bradycardic RHYTHM: abnormal rhythm irregularly irregular HEART SOUNDS: S1 normal and S2 normal PERIPHERAL PULSES: radial pulses present GI: COMMON NORMALS: normal to inspection, nondistended, normoactive bowel sounds, soft to palpation and non-tender INSPECTION: No abdominal distension AUSCULTATION: No hyperactive bowel sounds and No hypoactive bowel sounds PALPATION: Yes soft, No guarding and No rigid PERCUSSION: no dullness to percussion and no tympanic to percussion Extremity: COMMON NORMALS: no joint enlargement GENERAL: Yes edema (4+ lower extremities, anasarca, some upper extremity edema, worse on the L) RIGHT UPPER EXTREMITY: Yes elbow joint LEFT UPPER EXTREMITY: Yes elbow joint (tender to passive range of motion, no erythema, warmth, difficult to assess swelling with anasarca) Neuro: COMMON NORMALS: moves all extremities SENSORIUM/ORIENTATION: Yes oriented to person, Yes oriented to place and No oriented to time Psych: COMMON NORMALS: mental status grossly normal Skin: COMMON NORMALS: no rashes or lesions noted GENERAL SKIN EXAM: no rashes or lesions noted Data : 01/26/20 03:47 01/26/20 03:47 Micro: Microbiology 01/23/20 21:40 Urine Culture - Final Urine,Clean Catch Escherichia coli 01/23/20 21:37 Blood Culture - Preliminary Blood Gram positive charley A&P Additional A&P Information 1. CKD - Creatinine and renal function remains poor but stable - UO 2666ml over last 24hrs and 350ml so far today - cont Lasix gtt and will consider adding thiazide diuretic also - avoid the usuals 2. Hemodynamcis - symptomatic bradycardia with Afib - Coreg now on hold and Dopamine being tapered down, now a 2 3. Lytes look stable 4. OOB, PT/OT - prognosis custodial is of course poor and she is not a dialysis candidate. Attestations Medical Necessity Statement*: Eval for CKD and anasarca Coding Level of Care Code Acute Laboratory Administrative Director for g Kendell
[2020-01-26] MEDS: latanoprost 0.005% Op Soln 2.5 mL Btl 1 DROP EYE-LEFT (09:55)
[2020-01-26] MEDS: dorzolamide 2% Op Soln 10 mL Btl 1 DROP EYE-LEFT (09:55)
[2020-01-26] MEDS: brimonidine 0.2% Op Soln 5 mL Btl 1 DROP EYE-LEFT (09:55)
[2020-01-27] VITALS (11 sets, daily range): BP systolic 128–170; BP diastolic 50–72; PULSE 61–83; RESP 14–22; TEMP 36.8–37.1; O2SAT 93–97
[2020-01-27 05:55] LABS: Basophils % 0.5 %; Eosinophils # 0.1 10^3/uL (0.0-0.8); Eosinophils % 2.2 %; Hematocrit 35.9 % (37.0-47.0); Hemoglobin 10.9 g/dL (11.5-15.3); Mean Corpuscular HGB Conc 30.4 g/dL (30.0-36.0); Mean Corpuscular Hemoglobin 24.1 pg (28.0-34.0); Mean Corpuscular Volume 79.2 fL (81-99); Mean Platelet Volume 9.2 fL (7.4-10.4); Monocytes # 0.8 10^3/uL (0.2-0.9); Neutrophils % 66.8 %; Nucleated Red Blood Cells % 0 %; Platelet Count 124 10^3/cmm (130-400); Red Blood Count 4.53 10^6/uL (4.1-5.3); Red Cell Distribution Width 18.5 % (12.1-15.1); White Blood Count 5.9 10^3/uL (4.0-10.0)
[2020-01-27 06:31] LABS: Anion Gap 20.1 (5-19); Blood Urea Nitrogen 71 mg/dL (8-23); Calcium 9.3 mg/dL (8.5-10.5); Carbon Dioxide 29 mmol/L (22-29); Chloride 90 mmol/L (98-107); Glucose 81 mg/dL (65-115); Osmolality Calculated 278 mOsm/kg (285-295); Potassium 4.1 mmol/L (3.5-5.1); Sodium 135 mmol/L (136-145)
[2020-01-27] MEDS: cefTRIAXone 1,000 MG in sodium chloride 0.9% (plus) 50 ML 100 MG IV (08:00)
--- NOTE | 2020-01-27 08:28 | PM.PN ---
Subjective Subjective: Interval history: Rosio reports that she is doing okay this morning. She states she has been awake enough to no more. No chest pain. Feels like her swelling is less. Medications: Reviewed: Yes Vitals/I&O/Wt Last Vital Signs Temp 98.2 F 01/27/20 06:00 Pulse 68 01/27/20 06:00 Resp 18 01/27/20 06:00 BP 162/60 01/27/20 06:00 Pulse Ox 94 01/27/20 00:00 01/26/20 01/27/20 01/27/20 22:59 06:59 14:59 Intake Total 120 / 783 120 / 903 Output Total 1500 / 2300 3250 / 5550 Balance -1380 / -1517 -3130 / -4647 Physical Exam Narrative: EXAM NARRATIVE: General exam no apparent distress Cardiovascular irregular, irregular rhythm without murmur. Telemetry indicates no severe bradycardia Lungs clear Abdomen is soft, positive bowel sounds Extremities 1+ edema bilaterally Data : 01/27/20 05:06 01/27/20 05:06 Micro: Microbiology 01/23/20 21:40 Urine Culture - Final Urine,Clean Catch Escherichia coli A&P Assessment and plan (1) Symptomatic bradycardia: Dopamine used for severe bradycardia has been discontinued and she has had no recurrence of severe bradycardia. Carvedilol has been discontinued. Heart rate currently 68, atrial fibrillation Hyperkalemia, which may have contributed to bradycardia has resolved Continue to hold beta-thalia TSH checked and normal Status: Acute (2) Atrial fibrillation with slow ventricular response: On anticoagulation. . Dopamine is no longer needed Status: Acute (3) Acute exacerbation of CHF (congestive heart failure): Currently on a furosemide drip by nephrology. She is diuresed about 4800 cc over the last 24 hours. Renal function has improved slightly Oxygen requirement has lessened. Last echocardiogram demonstrated preserved EF. Pulmonary hypertension was noted on last echocardiogram. She has not wanted hemodialysis. Status: Acute (4) MYRON (acute kidney injury): Appreciate nephrology consultation. Renal function slightly improved, with diuresis with IV Lasix drip Patient has declined dialysis currently. Status: Acute (5) Hyperkalemia: Resolved with discontinuation of spironolactone, and treatment with Kayexalate, Lasix drip Status: Acute (6) Thrombocytopenia: Slightly low, stable Status: Acute (7) Pulmonary hypertension: Noted on transthoracic echocardiogram Status: Acute (8) Declining functional status: Consistent with cognitive dysfunction, possible mild delirium as well. Status: Acute (9) DNR (do not resuscitate): Status: Acute (10) Elbow pain, left: No fracture noted on x-ray. Per patient's description today I believe this may be improving slightly. Status: Acute Additional A&P Information History of hypertension. Antihypertensive held currently Obstructive sleep apnea DNR/DNI, patient refused transcutaneous pacing. DVT prophylaxis, apixaban At this point she is stable enough to transition to cardiac status unit. Attestations Medical Necessity Statement*: Needs continued hospital stay for further diuresis secondary to acute diastolic heart failure Coding Level of Care Code Acute Senior Network Systems Engineer for Delroyg Fwd Diagnoses Symptomatic bradycardia R00.1 Atrial fibrillation with slow ventricular response I48.91 Acute exacerbation of CHF (congestive heart failure) I50.9 MYRON (acute kidney injury) N17.9 Hyperkalemia E87.5 Thrombocytopenia D69.6 Pulmonary hypertension I27.20 Declining functional status R53.81 DNR (do not resuscitate) Z66 Elbow pain, left M25.522
[2020-01-27] MEDS: levothyroxine 25 mcg Tablet PO (09:12)
[2020-01-27] MEDS: apixaban 5 mg Tablet 2.5 MG PO ×2 (09:12→17:45)
[2020-01-27] MEDS: latanoprost 0.005% Op Soln 2.5 mL Btl 1 DROP EYE-LEFT (09:13)
[2020-01-27] MEDS: brimonidine 0.2% Op Soln 5 mL Btl 1 DROP EYE-LEFT (09:13)
[2020-01-27] MEDS: dorzolamide 2% Op Soln 10 mL Btl 1 DROP EYE-LEFT (09:13)
[2020-01-27] MEDS: polyethylene glycol 3350 Pkt 17 gm PO (09:13)
--- NOTE | 2020-01-27 14:02 | P.PN_ITS ---
Subjective Subjective: Interval history: Improving today with good urine output, improvement in edema and SOB. No uremic Sx. No pain, appears to be comfortable Medications: Reviewed: Yes Vitals/I&O/Wt Last Vital Signs Temp 98.6 F 01/27/20 11:06 Pulse 69 01/27/20 11:06 Resp 22 H 01/27/20 11:06 BP 143/72 01/27/20 11:06 Pulse Ox 95 01/27/20 11:06 01/26/20 01/27/20 01/27/20 22:59 06:59 14:59 Intake Total 120 / 783 120 / 903 360 / 360 Output Total 1500 / 2300 3250 / 5550 Balance -1380 / -1517 -3130 / -4647 360 / 360 Physical Exam Narrative: EXAM NARRATIVE: Exam performed via telemed with aid of the bedside RN General exam is a white female, in no obvious respiratory distress Cardiovascular irregular, irregular Lungs diminished breath sounds at the bases but no wheezes Abdomen is soft positive bowel sounds Extremities 3+ edema bilaterally Const: COMMON NORMALS: no apparent distress GENERAL APPEARANCE: cooperative and anxious ORIENTATION/CONSCIOUSNESS: Yes oriented to person and Yes oriented to place; not oriented to time HENMT: COMMON NORMALS: normocephalic and oropharynx normal HEAD & SCALP: normocephalic FACE & SINUS: normal facial exam NOSE: no nasal discharge Eye: COMMON NORMALS: PERRL and EOMs intact bilaterally PUPIL: Yes PERRL Neck/C-Spine: GENERAL: No tracheal deviation Chest: COMMONS NORMALS: inspection of chest normal CHEST: No tenderness Resp: COMMON NORMALS: normal respiratory effort (with nasal cannula) EFFORT & INSPECTION: Yes tachypneic, Yes respiratory distress, No retractions, No uses accessory muscles and No tracheal deviation AUSCULTATION: rales, no rhonchi, no wheezes and diminished lung sounds bilateral in the lower lung nugent Cardio: COMMON NORMALS: S1 normal heart sound, S2 normal heart sound and no murmurs RATE: bradycardic RHYTHM: abnormal rhythm irregularly irregular HEART SOUNDS: S1 normal and S2 normal PERIPHERAL PULSES: radial pulses present GI: COMMON NORMALS: normal to inspection, nondistended, normoactive bowel sounds, soft to palpation and non-tender INSPECTION: No abdominal distension AUSCULTATION: No hyperactive bowel sounds and No hypoactive bowel sounds PALPATION: Yes soft, No guarding and No rigid PERCUSSION: no dullness to percussion and no tympanic to percussion Extremity: COMMON NORMALS: no joint enlargement GENERAL: Yes edema (4+ lower extremities, anasarca, some upper extremity edema, worse on the L) Neuro: COMMON NORMALS: moves all extremities SENSORIUM/ORIENTATION: Yes oriented to person, Yes oriented to place and No oriented to time Psych: COMMON NORMALS: mental status grossly normal Skin: COMMON NORMALS: no rashes or lesions noted GENERAL SKIN EXAM: no rashes or lesions noted Data : 01/27/20 05:06 01/27/20 05:06 Micro: Microbiology 01/23/20 21:40 Urine Culture - Final Urine,Clean Catch Escherichia coli A&P Additional A&P Information 1. CKD - Creatinine and renal function improving with diuresis suggesting cardiorenal physiology - UO 3200ml over last 24hrs - switch lasix drip to 80mg po bid - avoid the usuals 2. Hemodynamcis - symptomatic bradycardia with Afib - Coreg now on hold and Dopamine is now off 3. Lytes look stable 4. OOB, PT/OT - for transfer to Med/Surg Attestations Medical Necessity Statement*: Eval for MYRON Coding Level of Care Code Acute Candy Rolling Machine Operator for Zainab Rdz
[2020-01-27] MEDS: HYDROcodone-acetaminophen 5-325 mg Tablet 1 TAB PO (14:38)
[2020-01-27] MEDS: FUROsemide 40 mg Tablet 80 MG PO (14:38)
[2020-01-28] VITALS (9 sets, daily range): BP systolic 133–168; BP diastolic 54–65; PULSE 66–77; RESP 16–20; TEMP 36.3–37.3; O2SAT 90–100
[2020-01-28 05:49] LABS: Basophils % 0.4 %; Eosinophils # 0.1 10^3/uL (0.0-0.8); Eosinophils % 2.4 %; Hematocrit 37.6 % (37.0-47.0); Hemoglobin 11.6 g/dL (11.5-15.3); Lymphocytes # 0.9 10^3/uL (0.8-4.8); Mean Corpuscular HGB Conc 30.9 g/dL (30.0-36.0); Mean Corpuscular Hemoglobin 24.5 pg (28.0-34.0); Mean Corpuscular Volume 79.5 fL (81-99); Mean Platelet Volume 9.5 fL (7.4-10.4); Monocytes # 0.8 10^3/uL (0.2-0.9); Monocytes % 13.8 %; Neutrophils # 3.7 10^3/uL (1.8-7.7); Neutrophils % 66.9 %; Nucleated Red Blood Cells % 0 %; Platelet Count 124 10^3/cmm (130-400); Red Blood Count 4.73 10^6/uL (4.1-5.3); Red Cell Distribution Width 18.7 % (12.1-15.1); White Blood Count 5.5 10^3/uL (4.0-10.0)
[2020-01-28 06:34] LABS: Anion Gap 17.5 (5-19); Blood Urea Nitrogen 57 mg/dL (8-23); Calcium 10.5 mg/dL (8.5-10.5); Carbon Dioxide 32 mmol/L (22-29); Chloride 87 mmol/L (98-107); Glucose 85 mg/dL (65-115); Magnesium 2.5 mg/dL (1.7-2.3); Osmolality Calculated 274 mOsm/kg (285-295); Potassium 3.5 mmol/L (3.5-5.1); Sodium 133 mmol/L (136-145)
[2020-01-28] MEDS: cefTRIAXone 1,000 MG in sodium chloride 0.9% (plus) 50 ML 100 MG IV (08:16)
[2020-01-28] MEDS: levothyroxine 25 mcg Tablet PO (08:17)
[2020-01-28] MEDS: FUROsemide 40 mg Tablet 80 MG PO ×2 (08:17→16:53)
[2020-01-28] MEDS: apixaban 5 mg Tablet 2.5 MG PO ×2 (08:17→16:56)
[2020-01-28] MEDS: brimonidine 0.2% Op Soln 5 mL Btl 1 DROP EYE-LEFT (08:24)
[2020-01-28] MEDS: latanoprost 0.005% Op Soln 2.5 mL Btl 1 DROP EYE-LEFT (08:26)
[2020-01-28] MEDS: dorzolamide 2% Op Soln 10 mL Btl 1 DROP EYE-LEFT (08:26)
--- NOTE | 2020-01-28 10:01 | PC.SOCIAL ---
IMM Update Pg2 of IMM updated. Initialed, dated, and timed and placed in chart. Copy provided to patient.
--- NOTE | 2020-01-28 11:58 | PM.PN ---
Subjective Subjective: Interval history: Rosio was sleeping when I entered the room. When I woke her for the exam there were no particular complaints although she appeared sleepy, and irritated. She denied any chest pain. She reported her legs were better. Medications: Reviewed: Yes Vitals/I&O/Wt Last Vital Signs Temp 97.9 F 01/28/20 07:58 Pulse 77 01/28/20 08:12 Resp 18 01/28/20 08:12 BP 161/58 01/28/20 07:58 Pulse Ox 95 01/28/20 08:12 01/27/20 01/28/20 01/28/20 22:59 06:59 14:59 Intake Total 60 / 470 260 / 260 Output Total 1900 / 3700 875 / 4575 Balance -1840 / -3230 -875 / -4105 260 / 260 Physical Exam Narrative: EXAM NARRATIVE: General exam is no apparent distress Cardiovascular regular rate and rhythm without murmur Lungs diminished breath sounds bilaterally but no wheezing Abdomen is soft, positive bowel sounds Extremities vastly improved with only trace edema. Data : 01/28/20 05:05 01/28/20 05:05 Micro: Microbiology 01/23/20 21:37 Blood Culture - Preliminary Blood Gram positive charley A&P Assessment and plan (1) Symptomatic bradycardia: Dopamine used for severe bradycardia has been discontinued and she has had no recurrence of severe bradycardia. Carvedilol has been discontinued. Hyperkalemia, which may have contributed to bradycardia has resolved Beta-thalia was discontinued TSH checked and normal Status: Acute (2) Atrial fibrillation with slow ventricular response: On anticoagulation. No longer on dopamine Status: Acute (3) Acute exacerbation of CHF (congestive heart failure): Previously on a furosemide drip. Transitioned yesterday to oral Lasix and continues to diurese significantly. Renal function is improved. Last echocardiogram demonstrated preserved EF. Pulmonary hypertension was noted on last echocardiogram. She has not wanted hemodialysis. Status: Acute (4) MYRON (acute kidney injury): Appreciate nephrology consultation. Renal function improved with diuresis Patient has declined dialysis currently, and it is not needed currently.. Status: Acute (5) Hyperkalemia: Resolved with discontinuation of spironolactone, and treatment with Kayexalate, Lasix drip Status: Acute (6) Thrombocytopenia: Slightly low, stable Status: Acute (7) Pulmonary hypertension: Noted on transthoracic echocardiogram Status: Acute (8) Declining functional status: Consistent with cognitive dysfunction, possible mild delirium as well. Status: Acute (9) DNR (do not resuscitate): Status: Acute (10) Elbow pain, left: No fracture noted on x-ray. No particular complaints today Status: Acute Additional A&P Information UTI, currently on Rocephin. Urine grew E. coli. History of hypertension. Antihypertensive held currently Obstructive sleep apnea DNR/DNI, patient refused transcutaneous pacing. DVT prophylaxis, apixaban [facility] if continues to improve. Attestations Medical Necessity Statement*: Needs continued hospitalization for close follow-up of heart failure, renal failure with diuresis. Coding Level of Care Code Acute Jawbone Breaker for Chg Fwd Diagnoses Symptomatic bradycardia R00.1 Atrial fibrillation with slow ventricular response I48.91 Acute exacerbation of CHF (congestive heart failure) I50.9 MYRON (acute kidney injury) N17.9 Hyperkalemia E87.5 Thrombocytopenia D69.6 Pulmonary hypertension I27.20 Declining functional status R53.81 DNR (do not resuscitate) Z66 Elbow pain, left M25.522
--- NOTE | 2020-01-28 12:49 | PM.PN ---
Subjective Subjective: Interval history: Improving today with good urine output, improvement in edema and SOB. No uremic Sx. No pain. She is remains very confused Medications: Reviewed: Yes Vitals/I&O/Wt Last Vital Signs Temp 97.9 F 01/28/20 07:58 Pulse 77 01/28/20 08:12 Resp 18 01/28/20 08:12 BP 161/58 01/28/20 07:58 Pulse Ox 95 01/28/20 08:12 01/27/20 01/28/20 01/28/20 22:59 06:59 14:59 Intake Total 60 / 470 260 / 260 Output Total 1900 / 3700 875 / 4575 Balance -1840 / -3230 -875 / -4105 260 / 260 Physical Exam Narrative: EXAM NARRATIVE: Exam performed via telemed with aid of the bedside RN General exam is a white female, in no obvious respiratory distress Cardiovascular irregular, irregular Lungs diminished breath sounds at the bases but no wheezes Abdomen is soft positive bowel sounds Extremities 3+ edema bilaterally Const: COMMON NORMALS: no acute distress GENERAL APPEARANCE: cooperative and anxious ORIENTATION/CONSCIOUSNESS: Yes oriented to person and Yes oriented to place; not oriented to time HENMT: COMMON NORMALS: normocephalic and oropharynx normal HEAD & SCALP: normocephalic FACE & SINUS: normal facial exam NOSE: No nasal discharge present Eye: COMMON NORMALS: Equal, round and reactive pupils present and EOMs intact bilaterally PUPIL: Yes Equal, round and reactive pupils present Neck/C-Spine: GENERAL: No tracheal deviation Chest: COMMONS NORMALS: normal inspection of the chest CHEST: No tenderness Resp: COMMON NORMALS: normal respiratory effort (with nasal cannula) EFFORT & INSPECTION: Yes tachypneic, Yes respiratory distress, No retractions, No uses accessory muscles and No tracheal deviation AUSCULTATION: rales, no rhonchi, no wheezes and diminished lung sounds bilateral in the lower lung nugent Cardio: COMMON NORMALS: S1 normal heart sound present, S2 normal heart sound present and No murmurs present (Cardio) RATE: bradycardic RHYTHM: abnormal rhythm irregularly irregular HEART SOUNDS: S1 normal heart sound present and S2 normal heart sound present PERIPHERAL PULSES: radial pulses present GI: COMMON NORMALS: Normal to inspection, nondistended, normoactive bowel sounds present, Soft to palpation and non-tender INSPECTION: No abdominal distension AUSCULTATION: No Hyperactive bowel sounds present and No Hypoactive bowel sounds present PALPATION: Yes Soft to palpation, No Guarding due to palpation present (GI) and No Rigid due to palpation PERCUSSION: no dullness to percussion and no tympanic to percussion Extremity: COMMON NORMALS: no joint enlargement GENERAL: Yes edema (4+ lower extremities, anasarca, some upper extremity edema, worse on the L) Neuro: COMMON NORMALS: moves all extremities SENSORIUM/ORIENTATION: Yes oriented to person, Yes oriented to place and No oriented to time Psych: COMMON NORMALS: mental status grossly normal Skin: COMMON NORMALS: no rashes or lesions noted GENERAL SKIN EXAM: no rashes or lesions noted Data : 01/28/20 05:05 01/28/20 05:05 Micro: Microbiology 01/23/20 21:37 Blood Culture - Preliminary Blood Gram positive charley A&P Additional A&P Information 1. CKD - Creatinine and renal function improving with diuresis suggesting cardiorenal physiology; although now showing signs of intravascular vol depletion with increasing bicabr levels - cont lasix 80mg po bid for now but may have to hold in the next 24hrs - avoid the usuals 2. Hemodynamcis - symptomatic bradycardia with Afib - Coreg now on hold and Dopamine is now off 3. Lytes look stable with minor non critical aberration 4. OOB, PT/OT - for transfer to Med/Surg Attestations Medical Necessity Statement*: eval for MYRON Coding Level of Care Code Acute Knitting Demonstrator for Zainab Rdz
[2020-01-28] MEDS: HYDROcodone-acetaminophen 5-325 mg Tablet 1 TAB PO (13:42)
[2020-01-29] VITALS (8 sets, daily range): BP systolic 147–163; BP diastolic 45–66; PULSE 71–77; RESP 14–18; TEMP 36.9–37.8; O2SAT 95–96
[2020-01-29 05:47] LABS: Anion Gap 19.1 (5-19); Blood Urea Nitrogen 51 mg/dL (8-23); Calcium 10.5 mg/dL (8.5-10.5); Carbon Dioxide 36 mmol/L (22-29); Chloride 86 mmol/L (98-107); Glucose 92 mg/dL (65-115); Osmolality Calculated 284 mOsm/kg (285-295); Potassium 3.1 mmol/L (3.5-5.1); Sodium 138 mmol/L (136-145)
--- NOTE | 2020-01-29 09:12 | PM.PN ---
Subjective Subjective: Interval history: Rosio denies any complaints today. She again was sleeping when I entered the room. Medications: Reviewed: Yes Vitals/I&O/Wt Last Vital Signs Temp 98.6 F 01/29/20 07:00 Pulse 71 01/29/20 08:20 Resp 16 01/29/20 08:20 BP 159/66 01/29/20 07:00 Pulse Ox 96 01/29/20 08:20 01/28/20 01/29/20 01/29/20 22:59 06:59 14:59 Intake Total 0 / 500 Output Total 1200 / 3200 2000 / 5200 Balance -1200 / -2700 -2000 / -4700 Physical Exam Narrative: EXAM NARRATIVE: General exam is no apparent distress. Oxygen requirement has decreased Cardiovascular regular rate and rhythm without murmur Lungs diminished breath sounds bilaterally but no wheezing Abdomen is soft, positive bowel sounds Extremities no significant edema Data : 01/28/20 05:05 01/29/20 05:13 Micro: Microbiology 01/23/20 21:37 Blood Culture - Final Blood NO GROWTH AFTER 5 DAYS A&P Assessment and plan (1) Symptomatic bradycardia: Dopamine used for severe bradycardia has been discontinued and she has had no recurrence of severe bradycardia. Carvedilol has been discontinued. Hyperkalemia, which may have contributed to bradycardia has resolved Beta-thalia was discontinued TSH checked and normal Status: Acute (2) Atrial fibrillation with slow ventricular response: On anticoagulation. No longer on dopamine Status: Acute (3) Acute exacerbation of CHF (congestive heart failure): Previously on a furosemide drip. Now on oral Lasix and continues to diurese well. Will lower dose to 40 mg daily. She appears compensated currently. Last echocardiogram demonstrated preserved EF. Pulmonary hypertension was noted on last echocardiogram. She has not wanted hemodialysis. Status: Acute (4) MYRON (acute kidney injury): Appreciate nephrology consultation. Renal function improved with diuresis Patient has declined dialysis currently, and it is not needed currently. Discussed case with in store banker briefly today. Will lower Lasix to 40 mg daily, monitor till tomorrow, discharge to care home facility if appropriate. Will need follow-up with Dr. Hollins as an outpatient relatively soon after discharge. Status: Acute (5) Hyperkalemia: Resolved with discontinuation of spironolactone, and treatment with Kayexalate, Lasix drip. Now with hypokalemia which will be supplemented. Status: Acute (6) Thrombocytopenia: Slightly low, stable Status: Acute (7) Pulmonary hypertension: Noted on transthoracic echocardiogram Status: Acute (8) Declining functional status: Consistent with cognitive dysfunction, possible mild delirium as well. Status: Acute (9) DNR (do not resuscitate): Status: Acute (10) Elbow pain, left: No fracture noted on x-ray. No particular complaints today Status: Acute Additional A&P Information UTI, currently on Rocephin. Urine grew E. coli. History of hypertension. Antihypertensive held currently Obstructive sleep apnea DNR/DNI, patient refused transcutaneous pacing. DVT prophylaxis, apixaban We will monitor for 1 more day, supplement potassium, with change in diuretic dose. Reviewed with nephrology. Attestations Medical Necessity Statement*: Needs continued hospitalization for close monitoring of renal function, status post severe renal failure now with hypokalemia Coding Level of Care Code Acute Caramel Cutter Helper for Chg Fwd Diagnoses Symptomatic bradycardia R00.1 Atrial fibrillation with slow ventricular response I48.91 Acute exacerbation of CHF (congestive heart failure) I50.9 MYRON (acute kidney injury) N17.9 Hyperkalemia E87.5 Thrombocytopenia D69.6 Pulmonary hypertension I27.20 Declining functional status R53.81 DNR (do not resuscitate) Z66 Elbow pain, left M25.522
[2020-01-29] MEDS: cefTRIAXone 1,000 MG in sodium chloride 0.9% (plus) 50 ML 100 MG IV (09:33)
[2020-01-29] MEDS: apixaban 5 mg Tablet 2.5 MG PO ×2 (09:50→17:56)
[2020-01-29] MEDS: levothyroxine 25 mcg Tablet PO (09:51)
[2020-01-29] MEDS: latanoprost 0.005% Op Soln 2.5 mL Btl 1 DROP EYE-LEFT (09:52)
[2020-01-29] MEDS: dorzolamide 2% Op Soln 10 mL Btl 1 DROP EYE-LEFT (09:54)
[2020-01-29] MEDS: brimonidine 0.2% Op Soln 5 mL Btl 1 DROP EYE-LEFT (09:56)
[2020-01-29] MEDS: polyethylene glycol 3350 Pkt 17 gm PO (10:05)
--- NOTE | 2020-01-29 11:29 | P.PN_ITS ---
Subjective Subjective: Interval history: Remains sleepy, but she is comfortable. Eating a little, drinking a little, passing urine. Took meds Medications: Reviewed: Yes Vitals/I&O/Wt Last Vital Signs Temp 98.6 F 01/29/20 07:00 Pulse 71 01/29/20 08:20 Resp 16 01/29/20 08:20 BP 159/66 01/29/20 07:00 Pulse Ox 96 01/29/20 08:20 01/28/20 01/29/20 01/29/20 22:59 06:59 14:59 Intake Total 0 / 550 360 / 360 Output Total 1200 / 3200 2000 / 5200 700 / 700 Balance -1200 / -2650 -2000 / -4650 -340 / -340 Physical Exam Narrative: EXAM NARRATIVE: Exam performed via telemed with aid of the bedside RN General exam is a white female, in no obvious respiratory distress Cardiovascular irregular, irregular Lungs diminished breath sounds at the bases but no wheezes Abdomen is soft positive bowel sounds Extremities 3+ edema bilaterally Const: COMMON NORMALS: no acute distress GENERAL APPEARANCE: cooperative and anxious ORIENTATION/CONSCIOUSNESS: Yes oriented to person and Yes oriented to place; not oriented to time HENMT: COMMON NORMALS: normocephalic and oropharynx normal HEAD & SCALP: normocephalic FACE & SINUS: normal facial exam NOSE: No nasal discharge present Eye: COMMON NORMALS: Equal, round and reactive pupils present and EOMs intact bilaterally PUPIL: Yes Equal, round and reactive pupils present Neck/C-Spine: GENERAL: No tracheal deviation Chest: COMMONS NORMALS: normal inspection of the chest CHEST: No tenderness Resp: COMMON NORMALS: normal respiratory effort (with nasal cannula) EFFORT & INSPECTION: Yes tachypneic, Yes respiratory distress, No retractions, No uses accessory muscles and No tracheal deviation AUSCULTATION: rales, no rhonchi, no wheezes and diminished lung sounds bilateral in the lower lung nugent Cardio: COMMON NORMALS: S1 normal heart sound present, S2 normal heart sound present and No murmurs present (Cardio) RATE: bradycardic RHYTHM: abnormal rhythm irregularly irregular HEART SOUNDS: S1 normal heart sound present and S2 normal heart sound present PERIPHERAL PULSES: radial pulses present GI: COMMON NORMALS: Normal to inspection, nondistended, normoactive bowel sounds present, Soft to palpation and non-tender INSPECTION: No abdominal distension AUSCULTATION: No Hyperactive bowel sounds present and No Hypoactive bowel sounds present PALPATION: Yes Soft to palpation, No Guarding due to palpation present (GI) and No Rigid due to palpation PERCUSSION: no dullness to percussion and no tympanic to percussion Extremity: COMMON NORMALS: no joint enlargement GENERAL: Yes edema (4+ lower extremities, anasarca, some upper extremity edema, worse on the L) Neuro: COMMON NORMALS: moves all extremities SENSORIUM/ORIENTATION: Yes oriented to person, Yes oriented to place and No oriented to time Psych: COMMON NORMALS: mental status grossly normal Skin: COMMON NORMALS: no rashes or lesions noted GENERAL SKIN EXAM: no rashes or lesions noted Data : 01/28/20 05:05 01/29/20 05:13 Micro: Microbiology 01/23/20 21:37 Blood Culture - Final Blood NO GROWTH AFTER 5 DAYS A&P Additional A&P Information 1. CKD - Creatinine and renal function improving with diuresis suggesting cardiorenal physiology - Lasix once daily now - avoid the usuals 2. Hemodynamcis - symptomatic bradycardia with Afib - Coreg now on hold and Dopamine is now off 3. Lytes look stable with minor non critical aberration (bicarb is drifting up) 4. OOB, PT/OT - for DC tomorrow to [facility] Attestations Medical Necessity Statement*: Eval for MYRON Coding Level of Care Code Acute Helpdesk Analyst for Zainab Rdz
--- NOTE | 2020-01-29 13:02 | XR_ITS ---
WS: [id number] PORTABLE CHEST HISTORY: follow up respiratory failure COMPARISON: 01/25/2020 Moderate pulmonary venous congestion with minimal improvement since the prior study. Slightly better aeration in the upper lung nugent. Small bilateral pleural effusions have slightly improved also. Cardiac size: Mildly enlarged cardiac silhouette. Mediastinum/Aorta: Mild atherosclerosis aorta. No osseous abnormality seen. XR/XR chest 1V portable [id number] IMPRESSION: 1. Mild improvement in pulmonary venous congestion and small bilateral pleural effusions since 01/25/2020. 2. Mild cardiomegaly.
--- NOTE | 2020-01-29 21:58 | PC.NURSE ---
Pt requested to speak with - Mars. This quality analyst/technical writer called and transferred phone call to to pts room. Pt became very tearful when speaking with stating I am ready to come home.
[2020-01-30] VITALS: BP 146/58; PULSE 74; RESP 17; TEMP 36.8; O2SAT 95
[2020-01-30 04:00] VITALS: BP 167/60; PULSE 79; RESP 18; TEMP 36.7; O2SAT 95
[2020-01-30 05:21] LABS: Basophils % 0.4 %; Eosinophils # 0.1 10^3/uL (0.0-0.8); Eosinophils % 2.1 %; Hematocrit 39.7 % (37.0-47.0); Hemoglobin 12.1 g/dL (11.5-15.3); Lymphocytes % 20.1 %; Mean Corpuscular HGB Conc 30.5 g/dL (30.0-36.0); Mean Corpuscular Hemoglobin 24.2 pg (28.0-34.0); Mean Corpuscular Volume 79.2 fL (81-99); Mean Platelet Volume 9.4 fL (7.4-10.4); Monocytes # 0.9 10^3/uL (0.2-0.9); Neutrophils # 3.1 10^3/uL (1.8-7.7); Neutrophils % 59.8 %; Nucleated Red Blood Cells % 0 %; Platelet Count 139 10^3/cmm (130-400); Red Blood Count 5.01 10^6/uL (4.1-5.3); Red Cell Distribution Width 18.9 % (12.1-15.1); White Blood Count 5.1 10^3/uL (4.0-10.0)
[2020-01-30 05:42] LABS: Anion Gap 18.4 (5-19); Blood Urea Nitrogen 47 mg/dL (8-23); Calcium 9.7 mg/dL (8.5-10.5); Carbon Dioxide 35 mmol/L (22-29); Chloride 87 mmol/L (98-107); Glucose 95 mg/dL (65-115); Osmolality Calculated 282 mOsm/kg (285-295); Potassium 3.4 mmol/L (3.5-5.1); Sodium 137 mmol/L (136-145)
[2020-01-30 07:52] VITALS: BP 162/54; PULSE 74; RESP 18; TEMP 37.1; O2SAT 97
[2020-01-30 07:57] VITALS: PULSE 74; RESP 17; O2SAT 97
[2020-01-30] MEDS: cefTRIAXone 1,000 MG in sodium chloride 0.9% (plus) 50 ML 100 MG IV (08:56)
[2020-01-30] MEDS: apixaban 5 mg Tablet 2.5 MG PO (08:57)
[2020-01-30] MEDS: FUROsemide 40 mg Tablet PO (08:57)
[2020-01-30] MEDS: brimonidine 0.2% Op Soln 5 mL Btl 1 DROP EYE-LEFT (08:58)
[2020-01-30] MEDS: latanoprost 0.005% Op Soln 2.5 mL Btl 1 DROP EYE-LEFT (08:58)
[2020-01-30] MEDS: dorzolamide 2% Op Soln 10 mL Btl 1 DROP EYE-LEFT (08:58)
[2020-01-30] MEDS: polyethylene glycol 3350 Pkt 17 gm PO (08:59)
[2020-01-30] MEDS: levothyroxine 25 mcg Tablet PO (08:59)
--- NOTE | 2020-01-30 10:42 | PM.PN ---
Subjective Subjective: Interval history: Remains sleepy, but she is comfortable. Eating a little, drinking a little, passing urine. Took meds Medications: Reviewed: Yes Vitals/I&O/Wt Last Vital Signs Temp 98.7 F 01/30/20 07:52 Pulse 74 01/30/20 07:57 Resp 17 01/30/20 07:57 BP 162/54 01/30/20 07:52 Pulse Ox 97 01/30/20 07:57 01/29/20 01/30/20 01/30/20 22:59 06:59 14:59 Intake Total 240 / 650 Output Total 1600 / 2300 Balance 240 / -50 -1600 / -1650 Physical Exam Narrative: EXAM NARRATIVE: Exam performed via telemed with aid of the bedside RN General exam is a white female, in no obvious respiratory distress Cardiovascular irregular, irregular Lungs diminished breath sounds at the bases but no wheezes Abdomen is soft positive bowel sounds Extremities 3+ edema bilaterally Const: COMMON NORMALS: no acute distress GENERAL APPEARANCE: cooperative and anxious ORIENTATION/CONSCIOUSNESS: Yes oriented to person and Yes oriented to place; not oriented to time HENMT: COMMON NORMALS: normocephalic and oropharynx normal HEAD & SCALP: normocephalic FACE & SINUS: normal facial exam NOSE: No nasal discharge present Eye: COMMON NORMALS: Equal, round and reactive pupils present and EOMs intact bilaterally PUPIL: Yes Equal, round and reactive pupils present Neck/C-Spine: GENERAL: No tracheal deviation Chest: COMMONS NORMALS: normal inspection of the chest CHEST: No tenderness Resp: COMMON NORMALS: normal respiratory effort (with nasal cannula) EFFORT & INSPECTION: Yes tachypneic, Yes respiratory distress, No retractions, No uses accessory muscles and No tracheal deviation AUSCULTATION: rales, no rhonchi, no wheezes and diminished lung sounds bilateral in the lower lung nugent Cardio: COMMON NORMALS: S1 normal heart sound present, S2 normal heart sound present and No murmurs present (Cardio) RATE: bradycardic RHYTHM: abnormal rhythm irregularly irregular HEART SOUNDS: S1 normal heart sound present and S2 normal heart sound present PERIPHERAL PULSES: radial pulses present GI: COMMON NORMALS: Normal to inspection, nondistended, normoactive bowel sounds present, Soft to palpation and non-tender INSPECTION: No abdominal distension AUSCULTATION: No Hyperactive bowel sounds present and No Hypoactive bowel sounds present PALPATION: Yes Soft to palpation, No Guarding due to palpation present (GI) and No Rigid due to palpation PERCUSSION: no dullness to percussion and no tympanic to percussion Extremity: COMMON NORMALS: no joint enlargement GENERAL: Yes edema (4+ lower extremities, anasarca, some upper extremity edema, worse on the L) Neuro: COMMON NORMALS: moves all extremities SENSORIUM/ORIENTATION: Yes oriented to person, Yes oriented to place and No oriented to time Psych: COMMON NORMALS: mental status grossly normal Skin: COMMON NORMALS: no rashes or lesions noted GENERAL SKIN EXAM: no rashes or lesions noted Urinary Catheter Management^: Giron: Cath Placed During This Visit: no Reason for Continuing Indwelling Catheter: Other Data : 01/30/20 05:01 01/30/20 05:01 Micro: Microbiology 01/23/20 21:37 Blood Culture - Final Blood Corynebacterium species A&P Additional A&P Information 1. CKD - Creatinine and renal function improving with diuresis suggesting cardiorenal physiology - Lasix once daily now - avoid the usuals 2. Hemodynamcis - symptomatic bradycardia with Afib - Coreg now on hold and Dopamine is now off 3. Lytes look stable with minor non critical aberration (bicarb is drifting up) - K replaced today 4. OOB, PT/OT - for DC - renal issues have resolved, I will sign off at this time, thanks for my involvement in her care Attestations Medical Necessity Statement*: Kelby for MYRON Coding Level of Care Code Acute Asbestos Worker Helper for Zainab Rdz
[2020-01-30 11:21] VITALS: BP 159/68; PULSE 72; RESP 18; TEMP 36.9; O2SAT 96
--- NOTE | 2020-01-30 11:52 | PM.DCS ---
Discharge Providers Date of Admission: 01/23/20 23:54 Date of Discharge: January 30, 2020 Attending Provider at Admission: Priscilla Colbert MD Attending Provider at Discharge: Macho Gil MD Primary Care Provider: Diana Gil MD Diagnoses at Discharge Discharge Diagnosis (1) Symptomatic bradycardia: Status: Acute Problem details: Resolved (2) Atrial fibrillation with slow ventricular response: Status: Acute Problem details: Improved (3) Acute exacerbation of CHF (congestive heart failure): Status: Acute Problem details: Compensated (4) MYRON (acute kidney injury): Status: Acute Problem details: Improved (5) Hyperkalemia: Status: Acute Problem details: Resolved (6) Thrombocytopenia: Status: Acute (7) Pulmonary hypertension: Status: Acute (8) Declining functional status: Status: Acute (9) DNR (do not resuscitate): Status: Acute (10) Elbow pain, left: Status: Acute Reason for Visit Reason for Visit: Reason For Visit: sob Hospital Course Hospital Course: Rosio is an 84-year-old nursing facility patient who presented with bradycardia, significant fluid gain consistent with acute heart failure, hyperkalemia, and acute kidney injury. She was initially placed in the ICU. She had refused any transcutaneous pacing. Atropine was given in the emergency department for her severe bradycardia. Her carvedilol was discontinued. Routine treatment of hyperkalemia ensued. During her hospital course she had resolution of her symptomatic bradycardia with holding her carvedilol and correcting of potassium levels. She eventually went on a furosemide drip secondary to the severity of her heart failure and with this she had significant diuresis, and improvement of renal function. Overall she had 16.8 L removed while in the hospital cumulatively. By the end of her hospital stay she was breathing much better and edema was largely gone, although she was still significantly weak. I had multiple conversations with her during her hospital course that her overall prognosis was poor secondary to multiple comorbidities. He will consider comfort measures in the future. At discharge her urinary catheter was removed, but if she has significant difficulty with output this may need to be replaced. She will need a BMP on Sunday. Discharge creatinine 2.4. She also was identified as having an E. coli UTI during her hospital stay and will finish a short course of cefdinir. Multiple changes in her medication regimen were completed on discharge. Physical Exam Narrative: EXAM NARRATIVE: General exam weak appearing white female Cardiovascular irregular, irregular Lungs clear but diminished breath sounds at the bases Abdomen is soft with positive bowel sounds Extremities no significant edema Urinary Catheter Management^: Giron: Cath Placed During This Visit: no Reason for Continuing Indwelling Catheter: Other Discharge Data Data Completed and Pending: Completed Studies During Hospitalization Category Date Time Status CT head wo con* 7 0450 Stat Cat Scan 01/23/20 21:23 Completed XR chest 1V ophelia ble [id number] Routine Exams 01/25/20 06:00 Completed XR chest 1V ophelia ble [id number] Routine Exams 01/29/20 13:02 Completed XR chest 1V ophelia ble [id number] Urgent Exams 01/23/20 21:23 Completed XR elbow LT min 3 V* [id number] Routine Exams 01/24/20 11:04 Completed CV echo complete* [id number] Routine Ultrasound 01/24/20 12:41 Completed US abdomen limite d [id number] Routine Ultrasound 01/24/20 12:42 Completed Pending at discharge Category Date Time Status Arterial Blood Ga s W/O Coox Routine Lab 01/23/20 22:00 Received Labs from last 24 hours 01/30/20 01/30/20 05:01 05:01 WBC 5.1 RBC 5.01 Hgb 12.1 Hct 39.7 MCV 79.2 L MCH 24.2 L MCHC 30.5 RDW 18.9 H Plt Count 139 MPV 9.4 Neut % (Auto) 59.8 Lymph % (Auto) 20.1 [place] % (Auto) 17.0 Eos % (Auto) 2.1 Baso % (Auto) 0.4 Neut # (Auto) 3.1 Lymph # (Auto) 1.0 [place] # (Auto) 0.9 Eos # (Auto) 0.1 Baso # (Auto) 0.0 Nucleated RBC % (a uto) 0 Nucleated RBCs # 0.0 Sodium 137 Potassium 3.4 L Chloride 87 L Carbon Dioxide 35 H Anion Gap 18.4 BUN 47 H Creatinine 2.4 H Glucose 95 Calculated Osmolal ity 282 L Calcium 9.7 Magnesium 2.0 Vitals: Last Vital Signs Temp 98.4 F 01/30/20 11:21 Pulse 72 01/30/20 11:21 Resp 18 01/30/20 11:21 BP 159/68 01/30/20 11:21 Pulse Ox 96 01/30/20 11:21 Discharge Plan Discharge Patient Disposition: er [facility] Condition: Stable Prescriptions: New furosemide 40 mg Tablet 40 mg PO DAILY@0800 Qty: 30 RF: 0 amlodipine [Norvasc] 5 mg tablet 5 mg PO DAILY Qty: 30 RF: 0 cefdinir 300 mg capsule 300 mg PO Q12H 5 Days Qty: 10 RF: 0 Continued latanoprost 0.005 % Drops 1 drp ophthalmic (eye) BEDTIME RF: 0 Tylenol 325 mg Tablet 650 mg PO QID PRN (Reason: Mild Pain (Scale Score 1-4)) RF: 0 ipratropium-albuterol 0.5 mg-3 mg(2.5 mg base)/3 mL Solution For Nebulization 3 ml INHALATION Q6H PRN (Reason: Shortness Of Breath) RF: 0 Miralax 17 gram Powder In Packet 1 g PO DAILY RF: 0 hydrocodone-acetaminophen 5-325 mg Tablet 1 tab PO BID PRN (Reason: Moderate Pain (Scale Score 5-6)) RF: 0 levothyroxine 25 mcg Tablet 25 mcg PO 0600 RF: 0 tamsulosin 0.4 mg Capsule 0.4 mg PO DAILY RF: 0 brimonidine 0.2 % Drops 1 drp OPHTHALMIC (EYE) BID RF: 0 Timoptic 0.5 % Drops 1 drp OPHTHALMIC (EYE) BID RF: 0 dorzolamide 2 % Drops 1 drp OPHTHALMIC (EYE) TID RF: 0 Eliquis 2.5 mg Tablet 2.5 mg PO BID RF: 0 Discontinued Lasix 40 mg Tablet 40 mg PO EVERY OTHER DAY RF: 0 carvedilol 25 mg Tablet 50 mg PO BID RF: 0 spironolactone 25 mg Tablet 25 mg PO DAILY RF: 0 Xanax 0.25 mg Tablet 0.25 mg PO BID PRN (Reason: Anxiety) RF: 0 magnesium oxide 400 mg (241.3 mg magnesium) Tablet 400 mg PO DAILY RF: 0 Norvasc 10 mg Tablet 10 mg PO DAILY RF: 0 Discharge Orders: Discharge Order (Routine); Ordered 01/30/20 Ordered By: Macho Gil Referrals: [facility] [Outside] Diana Gil MD [Primary Care Provider] - Paul Huber DO [Family Provider] - Discharge Diet: Usual diet Discharge Activity: Resume usual activity Activity Restrictions/Additional Instructions: Oxygen 2 L per nasal cannula titrate for sat greater than or equal to 90%. BMP on Sunday Monitor urine output. If concern about urine output straight cath and if greater than [address] urinary catheter Discharge Attestations Time Spent in Discharge Care*: greater than 30 min Quality Metrics Clinical Quality Measures During this hospital stay, did patient experience: None Coding Level of Care Code Acute Sample Supervisor for Chg Fwd Diagnoses Symptomatic bradycardia R00.1 Atrial fibrillation with slow ventricular response I48.91 Acute exacerbation of CHF (congestive heart failure) I50.9 MYRON (acute kidney injury) N17.9 Hyperkalemia E87.5 Thrombocytopenia D69.6 Pulmonary hypertension I27.20 Declining functional status R53.81 DNR (do not resuscitate) Z66 Elbow pain, left M25.522
[2020-01-30 12:15] VITALS: BP 159/68; PULSE 72; RESP 18; TEMP 36.9; O2SAT 96
== END 2020-01-30 13:38 | disposition skilled nursing facility (03) | DRG 308 ==
LOC: ER 23:11 → ICU 01-24 01:38 → MEDSURG 01-27 10:52
PROVIDERS: Emergency Medicine; Internal Medicine; Admitting Provider Internal Medicine; Family Provider Family Medicine; PCP Family Medicine; Visit Provider Internal Medicine
DX: R00.1 Bradycardia, unspecified (principal); I50.31 Acute diastolic (congestive) heart failure; I13.0 Hypertensive heart and chronic kidney disease with heart failure and stage 1 through stage 4 chronic kidney disease, or unspecified chronic kidney disease; N17.9 Acute kidney failure, unspecified; I69.354 Hemiplegia and hemiparesis following cerebral infarction affecting left non-dominant side; I48.91 Unspecified atrial fibrillation; M25.522 Pain in left elbow; I27.20 Pulmonary hypertension, unspecified; D69.6 Thrombocytopenia, unspecified; E87.5 Hyperkalemia; Z66 Do not resuscitate; Z79.01 Long term (current) use of anticoagulants; E03.9 Hypothyroidism, unspecified; Z99.81 Dependence on supplemental oxygen; F41.9 Anxiety disorder, unspecified; I25.10 Atherosclerotic heart disease of native coronary artery without angina pectoris; I07.1 Rheumatic tricuspid insufficiency; Z91.81 History of falling; K21.9 Gastro-esophageal reflux disease without esophagitis; N18.9 Chronic kidney disease, unspecified; G47.33 Obstructive sleep apnea (adult) (pediatric)
CPT/HCPCS: 12345; 36415; 36600; 70450; 71045; 73080; 76705; 80048; 80053; 80500; 81001; 82803; 83605; 83735; 83880; 84100; 84132; 84443; 84484; 85025; 86140; 87040; 87077; 87086; 87186; 87205; 93005; 93306; 94640; 94660; 96375; 97161; 97530; 99284; J0461; J0696; J1170; J1265; J1815; J1940; J2270; J2405; J3490; J7611; Q3014

== ENCOUNTER 2020-03-19 07:02 | Outpatient (CLI) | payer MEDICARE, BC, SELFPAY ==
[2020-03-19 07:33] LABS: Basophils % 0.8 %; Eosinophils # 0.2 10^3/uL (0.0-0.8); Eosinophils % 3.4 %; Hematocrit 42.4 % (37.0-47.0); Hemoglobin 13.2 g/dL (11.5-15.3); Lymphocytes # 1.3 10^3/uL (0.8-4.8); Lymphocytes % 26.3 %; Mean Corpuscular HGB Conc 31.1 g/dL (30.0-36.0); Mean Corpuscular Hemoglobin 26.3 pg (28.0-34.0); Mean Corpuscular Volume 84.6 fL (81-99); Mean Platelet Volume 9.4 fL (7.4-10.4); Monocytes # 0.5 10^3/uL (0.2-0.9); Monocytes % 9.9 %; Neutrophils % 59.2 %; Nucleated Red Blood Cells % 0 %; Platelet Count 266 10^3/cmm (130-400); Red Blood Count 5.01 10^6/uL (4.1-5.3); Red Cell Distribution Width 19.9 % (12.1-15.1); White Blood Count 5.1 10^3/uL (4.0-10.0)
[2020-03-19 07:58] LABS: Albumin Level 3.5 g/dL (3.5-5.2); Blood Urea Nitrogen 26 mg/dL (8-23); Calcium 9.8 mg/dL (8.5-10.5); Carbon Dioxide 28 mmol/L (22-29); Chloride 99 mmol/L (98-107); Glucose 96 mg/dL (65-115); Phosphorus 3.8 mg/dL (2.5-4.5); Sodium 138 mmol/L (136-145)
== END 2020-03-19 07:03 | disposition home or self-care (01) ==
PROVIDERS: Family Provider Family Medicine; PCP Family Medicine; Visit Provider Family Medicine
DX: N19 Unspecified kidney failure (principal)
CPT/HCPCS: 80069; 85025

== ENCOUNTER → 2021-08-24 11:10 | Outpatient (BNVA) | payer MEDICARE, BC, SELFPAY | PROVIDERS: Family Provider Family Medicine; PCP Family Medicine; Visit Provider Podiatrist Foot & Ankle Surgery | DX: S97.111A Crushing injury of right great toe, initial encounter (principal); V58.4XXA Person boarding or alighting a pick-up truck or van injured in noncollision transport accident, initial encounter; M79.89 Other specified soft tissue disorders; M77.32 Calcaneal spur, left foot; M89.9 Disorder of bone, unspecified | CPT/HCPCS: 73630 ==

== ENCOUNTER 2022-02-15 18:02 | Emergency (ER) | payer MEDICARE, BC, SELFPAY ==
--- NOTE | 2022-02-15 18:18 | ECG_ITS ---
[facility] Test Date: 2022-02-15 Pat Name: Rosio Sauer Department: Room: Gender: Female Probate Paralegal: : 1935 Requested By: Jaun Pollack Order Number: [id number] Crista MD: Lalo Maldonado M.D. Measurements Intervals [place] Rate: 73 P: MA: QRS: 86 QRSD: 86 T: 28 QT: 404 QTc: 446 Interpretive Statements ATRIAL FIBRILLATION ABNORMAL RHYTHM ECG Compared to ECG 01/24/2020 03:33:29 Atrial abnormality no longer present ST (T wave) deviation no longer present Electronically Signed On 02-15-2022 19:47:30 CDT by Lalo Maldonado M.D. [email or web address]
--- NOTE | 2022-02-15 18:18 | XRR_ITS ---
PROCEDURE INFORMATION: Exam: XR Chest Exam date and time: 02/15/2022 7:19 PM Age: 86 years old Clinical indication: Dyspnea; Additional info: SOB TECHNIQUE: Imaging protocol: XR of the chest. Views: 1 view. COMPARISON: CR XR chest 1V portable [id number] 01/29/2020 1:21 PM FINDINGS: Lungs: Bilateral interstitial and alveolar infiltrates, suggesting pulmonary edema. Pleural spaces: Minimal left pleural effusion. No right pleural effusion. Heart/Mediastinum: Cardiomegaly is present. Vasculature: The thoracic aorta is atherosclerotic. Bones/joints: Unremarkable. XR/XR chest 1V portable [id number] IMPRESSION: 1. Cardiomegaly is present. 2. Bilateral interstitial and alveolar infiltrates, suggesting pulmonary edema. 3. Minimal left pleural effusion. No right pleural effusion. 4. Findings appear less severe compared to previous XR chest of 01/29/2020.
[2022-02-15 18:19] VITALS: BP 181/90; PULSE 73; RESP 16; TEMP 36.4; O2SAT 95; BMI 36.9
[2022-02-15 18:26] LABS: Basophils % 0.6 %; Eosinophils # 0.2 10^3/uL (0.0-0.8); Eosinophils % 4.8 %; Hematocrit 33.7 % (37.0-47.0); Hemoglobin 10.6 g/dL (11.5-15.3); Lymphocytes # 0.8 10^3/uL (0.8-4.8); Lymphocytes % 15.9 %; Mean Corpuscular HGB Conc 31.5 g/dL (30.0-36.0); Mean Corpuscular Hemoglobin 28.4 pg (28.0-34.0); Mean Corpuscular Volume 90.3 fl (81-99); Mean Platelet Volume 10.2 fL (7.4-10.4); Monocytes # 0.6 10^3/uL (0.2-0.9); Monocytes % 12.1 %; Neutrophils # 3.34 10^3/uL (1.8-7.7); Neutrophils % 66.2 %; Nucleated Red Blood Cells % 0 %; Platelet Count 253 10^3/cmm (130-400); Red Blood Count 3.73 10^6/uL (4.1-5.3); Red Cell Distribution Width 14.6 % (12.1-15.1)
--- NOTE | 2022-02-15 18:33 | CTR_ITS ---
PROCEDURE INFORMATION: Exam: CT Abdomen And Pelvis Without Contrast Exam date and time: 02/15/2022 7:29 PM Age: 86 years old Clinical indication: Abdominal pain; Generalized; Additional info: Abd pain TECHNIQUE: Imaging protocol: Computed tomography of the abdomen and pelvis without contrast. Radiation optimization: All CT scans at this facility use at least one of these dose optimization techniques: automated exposure control; mA and/or kV adjustment per patient size (includes targeted exams where dose is matched to clinical indication); or iterative reconstruction. COMPARISON: CT pelvis wo con [id number] 12/26/2018 9:43 PM RADIATION DOSE METRICS: Total DLP (mGy-cm): 1836.87 FINDINGS: Limitations: The study is limited by patient respiratory motion artifact. Diaphragm: There is a small hiatal hernia present. Liver: The liver is unremarkable in appearance. Gallbladder and bile ducts: No calcified gallstones in the gallbladder. No gallbladder wall thickening. No pericholecystic fluid. No biliary dilatation. Pancreas: The pancreas is normal in appearance. No pancreatic duct dilatation. Spleen: The spleen is normal in size and appearance. Adrenal glands: Unremarkable. No mass. Kidneys and ureters: Severe cortical atrophy of the right kidney. Left kidney is normal in size. Atherosclerotic calcification noted in the left renal hilum. No definite renal calculus. No hydronephrosis. Left ureter appears normal. No obstructive uropathy on either side. Stomach and bowel: No acute gastric abnormality demonstrated. The small bowel is unremarkable as demonstrated. Large volume of retained stool distending the distal sigmoid colon and rectum consistent with constipation versus fecal impaction. Appendix: The appendix is normal in appearance. No evidence of appendicitis. Intraperitoneal space: No pneumoperitoneum. No significant fluid collection. Vasculature: Severe atherosclerosis of the aorta and iliac arteries. No abdominal aortic aneurysm. Lymph nodes: No pathologically enlarged lymph nodes. Urinary bladder: The urinary bladder is unremarkable in appearance. Reproductive: Unremarkable as visualized. Bones/joints: Scoliosis and degeneration of the spine. No acute osseous abnormality. Soft tissues: Large right anterolateral abdominal wall hernia noted. Multiple small bowel loops project into the hernia. There is no obstruction or incarceration of the bowel within the hernia. CT/CT abdomen pelvis con [id number] IMPRESSION: 1. The study is limited by patient respiratory motion artifact. 2. Large volume of retained stool distending the distal sigmoid colon and rectum consistent with constipation versus fecal impaction. No changes of stercoral colitis are demonstrated. 3. Large right anterolateral abdominal wall hernia noted. Multiple small bowel loops project into the hernia. There is no obstruction or incarceration of the bowel within the hernia. 4. Severe cortical atrophy of the right kidney. No acute renal abnormality noted on either side. 5. There is a small hiatal hernia present.
--- NOTE | 2022-02-15 18:35 | ED_ITS ---
HPI - General Adult General: Chief complaint: General Medical Stated complaint: WHEEZING, ABD PAIN Time Seen by Provider: 02/15/22 18:06 Source: patient and EMS Mode of arrival: EMS Limitations: physical limitation History of Present Illness: 86-year-old female who is here from longterm she does have a history of dementia she is alert to herself otherwise unable to get much history from her patient's had 4 pound weight gain this week along with some wheezing at longterm abdominal pain. They are concerned of fluid overload she is afebrile no vomiting she is in no distress here. Associated symptoms: Reports dyspnea; Deny chest pain, headache(s) or rash Review of Systems Const: Denies: fever(s), chills, body aches or change in appetite Eyes: Denies: blurry vision or eye discomfort ENMT: Denies: throat pain or dental pain Card: Denies: chest pain Resp: Reports: dyspnea and wheezing GI: Reports: abdominal pain : Denies: dysuria Musc: Denies: neck pain or back pain Skin/Breast: Denies: rash Neuro: Denies: headache(s) Psych: Denies: depression [place]/Lymph: Denies: easy bruising All/Imm: Denies: urticaria PFSH ED PFSH: Medical History (Updated 02/15/22 @ 20:23 by Jaun Pollack MD) Anxiety Arthritis Atrial fibrillation Back pain CHF (congestive heart failure) Preserved ejection fraction, moderate pulmonary hypertension, mild aortic valve stenosis Mild TR Chronic anticoagulation Coronary artery disease CVA (cerebral vascular accident) Right hemispheric stroke, residual left-sided weakness GERD (gastroesophageal reflux disease) Hyperkalemia Hypertension M?ni?re's disease Pulmonary hyperinflation Recurrent falls Ultrasound from 01/03 showed mild to moderate left renal atrophy Severe right renal atrophy Renal atrophy, bilateral Sleep apnea Thyroid disease Hypothyroidism TIA (transient ischemic attack) Surgical History H/O colonoscopy Polyp removal H/O knee surgery Previous back surgery Family History Other CAD (coronary artery disease) Hypertension Social History Smoking and tobacco status: never smoked Alcohol intake: never Housing: Half-Way Physical Exam Const: COMMON NORMALS: alert; negative for patient oriented x3 ORIENTATION/CONSCIOUSNESS: Yes oriented to person; not oriented to place and not oriented to time HENMT: COMMON NORMALS: normocephalic and atraumatic HEAD & SCALP: normocephalic and atraumatic Eye: COMMON NORMALS: Equal, round and reactive pupils present and EOMs intact bilaterally PUPIL: Yes Equal, round and reactive pupils present Neck/C-Spine: COMMON NORMALS: full ROM and supple Chest: COMMONS NORMALS: normal inspection of the chest and normal palpation of entire chest wall Resp: COMMON NORMALS: normal respiratory effort, No retractions, No use of accessory muscles and clear to auscultation bilaterally AUSCULTATION: clear to auscultation bilaterally Cardio: COMMON NORMALS: regular rate, regular rhythm and No murmurs present (Cardio) RATE: regular rate RHYTHM: regular rhythm GI: COMMON NORMALS: Normal to inspection, nondistended, normoactive bowel sounds present, Soft to palpation, non-tender and no masses PALPATION: Yes Soft to palpation Extremity: COMMON NORMALS: normal to inspection and full ROM Neuro: COMMON NORMALS: moves all extremities and no focal motor deficits; negative for patient oriented x3 SENSORIUM/ORIENTATION: Yes alert, Yes oriented to person, No oriented to place and No oriented to time Psych: COMMON NORMALS: cooperative Skin: COMMON NORMALS: no rashes or lesions noted and no wounds GENERAL SKIN EXAM: no rashes or lesions noted Course Vital Signs: Vital signs: Vital Signs Temperature 97.5 F L 02/15/22 18:19 Pulse Rate 91 02/15/22 20:36 Respiratory Rate 18 02/15/22 20:36 Blood Pressure 189/73 02/15/22 20:36 Pulse Oximetry 97 02/15/22 20:36 [facility] - General Adult Medical Decision Making Patient presents here with congestive heart failure with exacerbation she is not in severe distress I did give her IV Lasix we will increase her Lasix at home for a week. Her CT of her abdomen showed no acute abdominal findings she is stable for discharge recheck her labs in a week return if worsening he understand agree to plan. Lab Data : 02/15/22 18:11 02/15/22 18:57 Radiology Impressions Chest X-Ray 02/15/22 18:18 IMPRESSION: 1. Cardiomegaly is present. 2. Bilateral interstitial and alveolar infiltrates, suggesting pulmonary edema. 3. Minimal left pleural effusion. No right pleural effusion. 4. Findings appear less severe compared to previous XR chest of 01/29/2020. Abdomen/Pelvis CT 02/15/22 18:33 IMPRESSION: 1. The study is limited by patient respiratory motion artifact. 2. Large volume of retained stool distending the distal sigmoid colon and rectum consistent with constipation versus fecal impaction. No changes of stercoral colitis are demonstrated. 3. Large right anterolateral abdominal wall hernia noted. Multiple small bowel loops project into the hernia. There is no obstruction or incarceration of the bowel within the hernia. 4. Severe cortical atrophy of the right kidney. No acute renal abnormality noted on either side. 5. There is a small hiatal hernia present. Chest CT 02/15/22 19:38 IMPRESSION: 1. Cardiomegaly is present. Pericardial effusion noted, measuring up to 15 mm in thickness. 2. Prominence of the pulmonary interstitium. Mild ground-glass infiltrates in the lower lungs. The appearance is suggestive of pulmonary edema. Bilateral pneumonia could give a similar appearance. 3. Small to moderate bilateral pleural effusions are noted. Laboratory Results WBC 5.0 10^3/uL (4.0-10.0) 02/15/22 18:11 RBC 3.73 10^6/uL (4.1-5.3) L 02/15/22 18:11 Hgb 10.6 g/dL (11.5-15.3) L 02/15/22 18:11 Hct 33.7 % (37.0-47.0) L 02/15/22 18:11 MCV 90.3 fl (81-99) 02/15/22 18:11 MCH 28.4 pg (28.0-34.0) 02/15/22 18:11 MCHC 31.5 g/dL (30.0-36.0) 02/15/22 18:11 RDW 14.6 % (12.1-15.1) 02/15/22 18:11 Plt Count 253 10^3/cmm (130-400) 02/15/22 18:11 MPV 10.2 fL (7.4-10.4) 02/15/22 18:11 Neut % (Auto) 66.2 % 02/15/22 18:11 Lymph % (Auto) 15.9 % 02/15/22 18:11 [place] % (Auto) 12.1 % 02/15/22 18:11 Eos % (Auto) 4.8 % 02/15/22 18:11 Baso % (Auto) 0.6 % 02/15/22 18:11 Neut # (Auto) 3.34 10^3/uL (1.8-7.7) 02/15/22 18:11 Lymph # (Auto) 0.8 10^3/uL (0.8-4.8) 02/15/22 18:11 [place] # (Auto) 0.6 10^3/uL (0.2-0.9) 02/15/22 18:11 Eos # (Auto) 0.2 10^3/uL (0.0-0.8) 02/15/22 18:11 Baso # (Auto) 0.0 10^3/uL (0.0-0.1) 02/15/22 18:11 Nucleated RBC % (auto) 0 % 02/15/22 18:11 Nucleated RBCs # 0.0 /100WBC 02/15/22 18:11 PT 18.20 SECONDS (12.1-14.9) H 02/15/22 18:11 INR 1.48 (0.8-1.2) H 02/15/22 18:11 Sodium 132 mmol/L (136-145) L 02/15/22 18:57 Potassium 4.7 mmol/L (3.5-5.1) 02/15/22 18:57 Chloride 97 mmol/L (98-107) L 02/15/22 18:57 Carbon Dioxide 25 mmol/L (22-29) 02/15/22 18:57 Anion Gap 14.7 (5-19) 02/15/22 18:57 BUN 42 mg/dL (8-23) H 02/15/22 18:57 Creatinine 1.5 mg/dL (0.5-0.9) H 02/15/22 18:57 GFR Calculation Not Reportable 02/15/22 18:57 Glucose 108 mg/dL (65-115) 02/15/22 18:57 Calculated Osmolality 285 mOsm/kg (285-295) 02/15/22 18:57 Calcium 9.3 mg/dL (8.5-10.5) 02/15/22 18:57 Total Bilirubin 0.5 mg/dL (0.15-1.2) 02/15/22 18:57 AST 15 U/L (0-32) 02/15/22 18:57 ALT 8 U/L (0-33) 02/15/22 18:57 Alkaline Phosphatase 101 IU/L (35-105) 02/15/22 18:57 Troponin T Baseline 20 ng/L (0-10) H 02/15/22 18:11 NT-Pro-B Natriuret Pep 5523 pg/mL (0-450) H 02/15/22 18:57 Total Protein 8.0 g/dL (6.6-8.7) 02/15/22 18:57 Albumin 3.5 g/dL (3.5-5.2) 02/15/22 18:57 Globulin 4.5 g/dL (1.3-4.6) 02/15/22 18:57 EKG Data EKG 1: I personally reviewed and interpreted this EKG as follows: EKG interpretation date: 02/15/22 EKG interpretation time: 18:41 Interpretation: afib hr [address] or t wave abnormalities qrs 88 qtc 417 Computer generated interpretation: Chest X-Ray 02/15/22 18:18 IMPRESSION: 1. Cardiomegaly is present. 2. Bilateral interstitial and alveolar infiltrates, suggesting pulmonary edema. 3. Minimal left pleural effusion. No right pleural effusion. 4. Findings appear less severe compared to previous XR chest of 01/29/2020. Abdomen/Pelvis CT 02/15/22 18:33 IMPRESSION: 1. The study is limited by patient respiratory motion artifact. 2. Large volume of retained stool distending the distal sigmoid colon and rectum consistent with constipation versus fecal impaction. No changes of stercoral colitis are demonstrated. 3. Large right anterolateral abdominal wall hernia noted. Multiple small bowel loops project into the hernia. There is no obstruction or incarceration of the bowel within the hernia. 4. Severe cortical atrophy of the right kidney. No acute renal abnormality noted on either side. 5. There is a small hiatal hernia present. Chest CT 02/15/22 19:38 IMPRESSION: 1. Cardiomegaly is present. Pericardial effusion noted, measuring up to 15 mm in thickness. 2. Prominence of the pulmonary interstitium. Mild ground-glass infiltrates in the lower lungs. The appearance is suggestive of pulmonary edema. Bilateral pneumonia could give a similar appearance. 3. Small to moderate bilateral pleural effusions are noted. Discharge Plan Discharge Patient Disposition: Home Clinical Impression: Constipation Acute exacerbation of CHF (congestive heart failure) Qualifiers: Heart failure type: unspecified Qualified Code(s): I50.9 - Heart failure, unspecified Condition: Stable Prescriptions: New Miralax 17 gram powder in packet 17 g PO DAILY PRN (Reason: constipation) Qty: 30 0RF Changed furosemide 40 mg Tablet 40 mg PO BID Qty: 14 0RF No Action sertraline [Zoloft] 50 mg tablet 50 mg PO DAILY 0RF sertraline [Zoloft] 25 mg tablet 25 mg PO DAILY 0RF latanoprost 0.005 % Drops 1 drp ophthalmic (eye) BEDTIME 0RF Rx Instructions: to left eye Tylenol 325 mg Tablet 650 mg PO QID PRN (Reason: Mild Pain (Scale Score 1-4)) 0RF ipratropium-albuterol 0.5 mg-3 mg(2.5 mg base)/3 mL Solution For Nebulization 3 ml INHALATION Q6H PRN (Reason: Shortness Of Breath) 0RF Miralax 17 gram Powder In Packet 1 g PO DAILY 0RF Rx Instructions: mix with 4 oz. juice or water hydrocodone-acetaminophen 5-325 mg Tablet 1 tab PO BID PRN (Reason: Moderate Pain (Scale Score 5-6)) 0RF levothyroxine 25 mcg Tablet 25 mcg PO 0600 0RF tamsulosin 0.4 mg Capsule 0.4 mg PO DAILY 0RF brimonidine 0.2 % Drops 1 drp OPHTHALMIC (EYE) BID 0RF Rx Instructions: to left eye twice daily Timoptic 0.5 % Drops 1 drp OPHTHALMIC (EYE) BID 0RF Rx Instructions: to both eyes dorzolamide 2 % Drops 1 drp OPHTHALMIC (EYE) TID 0RF Rx Instructions: to left eye Eliquis 2.5 mg Tablet 2.5 mg PO BID 0RF Norvasc 5 mg tablet 5 mg PO DAILY Qty: 30 0RF Discharge Orders: Discharge ED (Routine); Ordered 02/15/22 Ordered By: Jaun Pollack Referrals: Diana Gil MD [Primary Care Provider] - 1-3 days Discharge Diet: Advance as tolerated Discharge Activity: Resume usual activity Patient Instructions: Heart Failure (ED), Constipation (ED) Activity Restrictions/Additional Instructions: increase lasix to bid for one week then go back to normal dose Coding Level of Care Code ED Restaurant Hospitality Manager for Zainab Fwd Exam Comprehensive
[2022-02-15 18:38] LABS: INR 1.48 (0.8-1.2)
[2022-02-15 18:44] LABS: Troponin(5th) Baseline 20 ng/L (0-10)
[2022-02-15 19:00] VITALS: BP 199/88; PULSE 85; RESP 18; O2SAT 95
[2022-02-15] MEDS: hyDRALAzine 20 mg/mL INJ 1 mL 10 MG IVP (19:10)
--- NOTE | 2022-02-15 19:38 | CTR_ITS ---
PROCEDURE INFORMATION: Exam: CT Chest Without Contrast; Diagnostic Exam date and time: 02/15/2022 7:41 PM Age: 86 years old Clinical indication: Wheezing TECHNIQUE: Imaging protocol: Diagnostic computed tomography of the chest without contrast. Radiation optimization: All CT scans at this facility use at least one of these dose optimization techniques: automated exposure control; mA and/or kV adjustment per patient size (includes targeted exams where dose is matched to clinical indication); or iterative reconstruction. COMPARISON: CR (CHEST, ) 02/15/2022 7:19 PM RADIATION DOSE METRICS: Total DLP (mGy-cm): 917.26 FINDINGS: Lungs: Prominence of the pulmonary interstitium. Mild ground-glass infiltrates in the lower lungs. Pleural spaces: Small to moderate bilateral pleural effusions are noted. Heart: Atherosclerotic calcifications are seen in the coronary arteries. Cardiomegaly is present. Pericardial effusion noted, measuring up to 15 mm in thickness. Lymph nodes: Calcified lymph nodes, consistent with old granulomatous disease. Vasculature: Atherosclerosis of the thoracic aorta without aneurysm. Spleen: Calcified granulomas are noted in the spleen. Bones/joints: Degenerative thoracic spine changes are noted. There is no acute osseous abnormality identified. Soft tissues: No acute abnormality. CT/CT chest wo con [id number] IMPRESSION: 1. Cardiomegaly is present. Pericardial effusion noted, measuring up to 15 mm in thickness. 2. Prominence of the pulmonary interstitium. Mild ground-glass infiltrates in the lower lungs. The appearance is suggestive of pulmonary edema. Bilateral pneumonia could give a similar appearance. 3. Small to moderate bilateral pleural effusions are noted.
[2022-02-15 19:47] LABS: Alanine Aminotransferase 8 U/L (0-33); Albumin Level 3.5 g/dL (3.5-5.2); Alkaline Phosphatase 101 IU/L (35-105); Anion Gap 14.7 (5-19); Aspartate Amino Transferase 15 U/L (0-32); Blood Urea Nitrogen 42 mg/dL (8-23); Calcium 9.3 mg/dL (8.5-10.5); Carbon Dioxide 25 mmol/L (22-29); Chloride 97 mmol/L (98-107); Globulin 4.5 g/dL (1.3-4.6); Glucose 108 mg/dL (65-115); NT Pro B Type Natriuretic Pept 5523 pg/mL (0-450); Osmolality Calculated 285 mOsm/kg (285-295); Potassium 4.7 mmol/L (3.5-5.1); Sodium 132 mmol/L (136-145); Total Bilirubin 0.5 mg/dL (0.15-1.2)
[2022-02-15 20:00] VITALS: BP 164/78; PULSE 90; RESP 22; O2SAT 96
[2022-02-15] MEDS: FUROsemide 10 mg/mL SDV 4mL 40 MG IVP ×2 (20:06→20:38)
--- NOTE | 2022-02-15 20:18 | ECG_ITS ---
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 Measurements Intervals [place] Rate: 79 P: ND: QRS: 90 QRSD: 88 T: 29 QT: 382 QTc: 440 Interpretive Statements ATRIAL FIBRILLATION ABNORMAL RHYTHM ECG Compared to ECG 02/15/2022 18:32:50 No significant changes Electronically Signed On 02-15-2022 19:50:48 CDT by Lalo Maldonado M.D. [id number]
[2022-02-15 20:36] VITALS: BP 189/73; PULSE 91; RESP 18; O2SAT 97
[2022-02-15] MEDS: lactulose oral liq 20 gm/30 mL UDC 30 GM PO (20:38)
[2022-02-15 21:02] VITALS: PULSE 101; RESP 24; O2SAT 93
== END 2022-02-15 21:06 | disposition home or self-care (01) ==
PROVIDERS: Emergency Provider Emergency Medicine; PCP Family Medicine
DX: K59.00 Constipation, unspecified (principal); F03.90 Unspecified dementia, unspecified severity, without behavioral disturbance, psychotic disturbance, mood disturbance, and anxiety; I48.91 Unspecified atrial fibrillation; I25.10 Atherosclerotic heart disease of native coronary artery without angina pectoris; I11.0 Hypertensive heart disease with heart failure; I50.9 Heart failure, unspecified
CPT/HCPCS: 71045; 71250; 74176; 80053; 83880; 84484; 85025; 85610; 93005; 96374; 96375; 96376; 99285; J0360; J1940

== ENCOUNTER → 2022-02-22 10:06 | Outpatient (BNVA) | payer MEDICARE, BC, SELFPAY | PROVIDERS: PCP Family Medicine; Visit Provider Internal Medicine Cardiovascular Disease | DX: I48.91 Unspecified atrial fibrillation (principal); I11.0 Hypertensive heart disease with heart failure; I50.33 Acute on chronic diastolic (congestive) heart failure; I27.20 Pulmonary hypertension, unspecified; D69.6 Thrombocytopenia, unspecified; R00.1 Bradycardia, unspecified; Z86.73 Personal history of transient ischemic attack (TIA), and cerebral infarction without residual deficits | CPT/HCPCS: 80048; 83880; 99204 ==

== ENCOUNTER 2022-07-12 17:46 | Outpatient (CLI) | payer MEDICARE, BC, SELFPAY ==
[2022-07-12 18:10] LABS: Basophils % 0.3 %; Eosinophils # 0.2 10^3/uL (0.0-0.8); Eosinophils % 5.1 %; Hemoglobin 9.8 g/dL (11.5-15.3); Lymphocytes # 0.7 10^3/uL (0.8-4.8); Mean Corpuscular HGB Conc 31.6 g/dL (30.0-36.0); Mean Corpuscular Hemoglobin 25.7 pg (28.0-34.0); Mean Corpuscular Volume 81.2 fl (81-99); Mean Platelet Volume 8.5 fL (7.4-10.4); Monocytes # 0.4 10^3/uL (0.2-0.9); Monocytes % 12.5 %; Neutrophils # 2.06 10^3/uL (1.8-7.7); Neutrophils % 58.5 %; Nucleated Red Blood Cells % 0 %; Platelet Count 434 10^3/cmm (130-400); Red Blood Count 3.82 10^6/uL (4.1-5.3); White Blood Count 3.5 10^3/uL (4.0-10.0)
== END 2022-07-12 17:47 | disposition home or self-care (01) ==
LOC: LAB 17:48
PROVIDERS: PCP Family Medicine; Visit Provider Nurse Practitioner Family
DX: D64.9 Anemia, unspecified (principal)
CPT/HCPCS: 85025

== ENCOUNTER 2022-09-26 18:53 | Emergency (ER) | payer MEDICARE, BC, SELFPAY ==
--- NOTE | 2022-09-26 | CTR_ITS ---
PROCEDURE INFORMATION: Exam: CT Cervical Spine Without Contrast Exam date and time: 09/26/2022 7:41 PM Age: 87 years old Clinical indication: Injury or trauma; Fall; Blunt trauma TECHNIQUE: Imaging protocol: Computed tomography of the cervical spine without contrast. Radiation optimization: All CT scans at this facility use at least one of these dose optimization techniques: automated exposure control; mA and/or kV adjustment per patient size (includes targeted exams where dose is matched to clinical indication); or iterative reconstruction. COMPARISON: CT cervical spin wo con* [id number] 12/26/2018 9:34 PM RADIATION DOSE METRICS: Total DLP (mGy-cm): 182.37 FINDINGS: Bones/joints: No spine curvature seen. There is straightening of the normal cervical lordosis with grade 1 anterolisthesis of C3. No fracture identified. Vertebral body heights are well preserved. There is multilevel degenerative changes, manifested by intervertebral disc space narrowing, endplate osteophytes and facet joint arthrosis. Lungs: Lung apices are normal. Pleural spaces: Biapical pleural calcifications noted. Soft tissues: Unremarkable. CT/CT cervical spin wo con* [id number] IMPRESSION: No acute injury.
--- NOTE | 2022-09-26 | CTR_ITS ---
PROCEDURE INFORMATION: Exam: CT Thoracic Spine Without Contrast Exam date and time: 09/26/2022 7:46 PM Age: 87 years old Clinical indication: Injury or trauma; Fall; Blunt trauma (contusions or hematomas) TECHNIQUE: Imaging protocol: Computed tomography of the thoracic spine without contrast. Radiation optimization: All CT scans at this facility use at least one of these dose optimization techniques: automated exposure control; mA and/or kV adjustment per patient size (includes targeted exams where dose is matched to clinical indication); or iterative reconstruction. COMPARISON: CT thoracic spin wo con* [id number] 12/29/2018 11:10 AM RADIATION DOSE METRICS: Total DLP (mGy-cm): 931.88 FINDINGS: Bones/joints: Chronic thoracic scoliosis with multilevel chronic degenerative changes. Chronic thoracic ankylosis. No fracture or subluxation. Soft tissues: Unremarkable. Vasculature: Extensive aortic atherosclerosis. Pleural spaces: Bilateral small pleural effusions. Heart: Pericardial effusion. CT/CT thoracic spin wo con* [id number] IMPRESSION: 1. No thoracic spine fracture or high-grade stenosis. 2. Chronic scoliosis and ankylosis.
[2022-09-26 19:00] VITALS: BP 198/85; PULSE 74; RESP 16; TEMP 36.4; O2SAT 94; BMI 26.6
--- NOTE | 2022-09-26 19:08 | XRR_ITS ---
PROCEDURE INFORMATION: Exam: XR Left Wrist Exam date and time: 09/26/2022 7:32 PM Age: 87 years old Clinical indication: Injury or trauma; Fall; Other: Pain; Additional info: Fall, left wrist pain TECHNIQUE: Imaging protocol: Radiologic exam of the Left wrist. Views: 3 or more views. COMPARISON: No relevant prior studies available. FINDINGS: Bones/joints: No wrist fracture. Generalized demineralization. Soft tissues: Normal. Vasculature: There is peripheral atherosclerosis. XR/XR wrist LT min 3V* [id number] IMPRESSION: No acute findings The
--- NOTE | 2022-09-26 19:08 | CTR_ITS ---
PROCEDURE INFORMATION: Exam: CT Lumbar Spine Without Contrast Exam date and time: 09/26/2022 7:54 PM Age: 87 years old Clinical indication: Injury or trauma; Fall; Blunt trauma (contusions or hematomas); Additional info: Fall, back pain TECHNIQUE: Imaging protocol: Computed tomography of the lumbar spine without contrast. Radiation optimization: All CT scans at this facility use at least one of these dose optimization techniques: automated exposure control; mA and/or kV adjustment per patient size (includes targeted exams where dose is matched to clinical indication); or iterative reconstruction. COMPARISON: CT lumbar spine wo con* [id number] 12/26/2018 9:40 PM RADIATION DOSE METRICS: Total DLP (mGy-cm): 890.29 FINDINGS: Bones/joints: Chronic moderately severe convex right scoliosis. There are numerous bridging osteophytes and advanced degenerative disc disease. L3-L4 mild central stenosis due to combination of degenerative factors. L2-L3 mild central stenosis due to combination of degenerative factors. No acute fracture. Kidneys and ureters: Atrophic right kidney. Vasculature: Severe atherosclerosis of the abdominal aorta likely producing a moderate to high-grade stenosis. Soft tissues: Unremarkable. CT/CT lumbar spine wo con* [id number] IMPRESSION: 1. Multilevel chronic degenerative changes. No fracture. 2. Chronic findings as described.
--- NOTE | 2022-09-26 19:08 | CTR_ITS ---
PROCEDURE INFORMATION: Exam: CT Head Without Contrast Exam date and time: 09/26/2022 7:38 PM Age: 87 years old Clinical indication: Injury or trauma; Fall; Blunt trauma (contusions or hematomas); Additional info: Fall, head pain TECHNIQUE: Imaging protocol: Computed tomography of the head without contrast. Radiation optimization: All CT scans at this facility use at least one of these dose optimization techniques: automated exposure control; mA and/or kV adjustment per patient size (includes targeted exams where dose is matched to clinical indication); or iterative reconstruction. COMPARISON: CT head wo con* [id number] 01/23/2020 10:36 PM RADIATION DOSE METRICS: Total DLP (mGy-cm): 1105.78 FINDINGS: Brain: No CT evidence for acute ischemia, mass or hemorrhage. Chronic small infarcts in the right cerebellum, bilaterally in the thalami and deep white matter tracts. Cerebral ventricles: There is extensive severe microangiopathy with accompanying sulcal widening and ventricular enlargement. Paranasal sinuses: There is scattered mucosal thickening in the paranasal sinus Mastoid air cells: Visualized mastoid air cells are well aerated. Bones/joints: Unremarkable. No acute fracture. Soft tissues: Unremarkable. CT/CT head wo con* [id number] IMPRESSION: 1. No acute findings. 2. Advanced atrophy and microangiopathy. 3. Chronic lacunar infarcts
--- NOTE | 2022-09-26 19:08 | XRR_ITS ---
PROCEDURE INFORMATION: Exam: XR Right Hip Exam date and time: 09/26/2022 7:23 PM Age: 87 years old Clinical indication: Injury or trauma; Fall; Other: Pain; Injury date: 09/26/2022; Additional info: Fall, right hip pain TECHNIQUE: Imaging protocol: Radiologic exam of the Right hip. Views: 1 view hip with pelvis when performed. COMPARISON: CT abdomen pelvis wo con [id number] 02/15/2022 7:29 PM FINDINGS: Bones/joints: The hips and pelvis are intact. Degenerative changes are mild. Soft tissues: Unremarkable. Gastrointestinal tract: Increased fecal loading in the rectosigmoid colon. Vasculature: There is peripheral atherosclerosis. XR/XR hip RT 2-3V wo/w pel* [id number] IMPRESSION: No acute bony findings
--- NOTE | 2022-09-26 19:17 | ED_ITS ---
HPI - Fall General: Chief Complaint: Fall Stated Complaint: Back Pain/R Hip Pain Time Seen by Provider: 09/26/22 19:07 Source: patient, EMS and other (snf report) Mode of arrival: EMS History of Present Illness: This patient was transported to the emergency department from a local long-term care facility. Apparently during transfer the patient fell from a Joan lift striking a wheelchair that was sitting next to the bed. Uncertain whether she had a loss of consciousness although she denies a loss of consciousness. She states she still has residual neck pain and some lower back pain. She states that she had more pain right after the accident but she has much less pain now. He is anxious to go back to her long-term care facility. She denies any other complaints. No current DOAC's or anticoagulants from review of her medications. MD complaint: fall Fall witnessed: yes, by living facility staff Place fall occurred: snf/SNF Loss of consciousness: None Location of injury: neck and back Associated symptoms-after fall: Reports neck pain; Denies abdominal pain, chest pain or headache(s) Review of Systems Const: Denies: fever(s) or chills ENMT: Denies: odynophagia or nasal discharge Card: Denies: chest pain or palpitations Resp: Denies: dyspnea, productive cough or non-productive cough GI: Denies: abdominal pain, nausea or vomiting : Denies: flank pain, difficulty voiding or dysuria Musc: Reports: neck pain and back pain; Denies: extremity pain or extremity swelling Skin/Breast: Denies: rash Neuro: Denies: headache(s), sensory changes or seizure-like activity [facility] ED PFSH: Medical History Anxiety Arthritis Atrial fibrillation Back pain CHF (congestive heart failure) Preserved ejection fraction, moderate pulmonary hypertension, mild aortic valve stenosis Mild TR Chronic anticoagulation Coronary artery disease CVA (cerebral vascular accident) Right hemispheric stroke, residual left-sided weakness GERD (gastroesophageal reflux disease) Hyperkalemia Hypertension M?ni?re's disease Pulmonary hyperinflation Recurrent falls Ultrasound from 01/03 showed mild to moderate left renal atrophy Severe right renal atrophy Renal atrophy, bilateral Sleep apnea Thyroid disease Hypothyroidism TIA (transient ischemic attack) Surgical History H/O colonoscopy Polyp removal H/O knee surgery Previous back surgery Family History Father CAD (coronary artery disease) Sister Dementia Other Hypertension Denies family history of Diabetes Clotting disorder Chronic kidney disease (CKD) Suicide Anesthesia complication Bleeding disorder Lung disease Cancer Stroke Social History Smoking and tobacco status: never smoked Alcohol intake: never Housing: Halfway Physical Exam Narrative: EXAM NARRATIVE: The patient's initially resting but easily aroused. She answers questions in a fluent and goal-directed fashion. She denies any pain at this time. Const: COMMON NORMALS: no acute distress and alert GENERAL APPEARANCE: cooperative and comfortable ORIENTATION/CONSCIOUSNESS: Yes awake and Yes oriented to person HENMT: COMMON NORMALS: normocephalic, atraumatic, Normal nasal mucous membranes and turbinates present and moist oral mucous membranes HEAD & SCALP: normocephalic and atraumatic FACE & SINUS: normal facial exam NOSE: Normal nasal mucous membranes and turbinates present Eye: OTHER: Left cornea is opaque. Right cornea is clear conjunctiva is clear bilaterally. Neck/C-Spine: CERVICAL SPINE: No step off deformity, No Paracervical spasm and No Trapezius muscle tenderness Chest: COMMONS NORMALS: normal inspection of the chest and normal palpation of entire chest wall Resp: COMMON NORMALS: normal respiratory effort, No retractions and No use of accessory muscles Cardio: COMMON NORMALS: regular rate, regular rhythm, No murmurs present (Cardio) and Peripheral pulses 2+ throughout RATE: regular rate RHYTHM: regular rhythm PERIPHERAL PULSES: Peripheral pulses 2+ throughout GI: COMMON NORMALS: Normal to inspection, nondistended, normoactive bowel sounds present, Soft to palpation and non-tender PALPATION: Yes Soft to palpation : COMMON NORMALS: Yes no CVA tenderness BLADDER/KIDNEY EXAM: Yes no CVA tenderness Back/Pelvis: COMMON NORMALS: no CVA tenderness, thoracic and lumbar spine normal to inspection and straight leg raise negative bilaterally Extremity: COMMON NORMALS: capillary refill normal, no calf tenderness and no pedal edema Neuro: AMBAR COMA SCALE: document GCS findings [place] coma scale eye opening: Spontaneous [place] coma scale verbal response: Orientated [place] coma scale motor response: Obey commands [place] coma scale total score: 15 COMMON NORMALS: moves all extremities and no sensory deficits noted SENSORIUM/ORIENTATION: Yes alert and Yes oriented to person SPEECH: speech normal Course Reevaluation(s): Reevaluation #1: She remained stable and alert no new or focal findings on repeat examination. She desires to be transported back to her long-term care facility. Time: 20:39 Vital Signs: Vital signs: Vital Signs Temperature 97.6 F 09/26/22 19:00 Pulse Rate 74 09/26/22 19:00 Respiratory Rate 16 09/26/22 19:00 Blood Pressure 198/85 09/26/22 19:00 Pulse Oximetry 94 09/26/22 19:00 Oxygen Delivery Me thod 09/26/22 19:00 MDM - Fall Medical Decision Making Octogenarian transported to the emergency department by EMS from [facility] after a fall while transferring. No history to suggest syncope, loss of conscious etc. The fall seemingly occurred due to a lift failure. Her clinical examination was unrevealing as to any obvious signs of severe or concerning trauma. She did have localized tenderness and imaging was undertaken to ensure no evidence of bony injury intracranial hemorrhage cervical spine fracture etc. All imaging was reassuring and repeat examination was unrevealing for any new or concerning findings. He is stable at this time to be transported back to the long-[facility] for ongoing care. Medical Records I reviewed the patient's medical records. Lab Data I reviewed the patient's lab results. Radiology Impressions Head CT 09/26/22 19:08 IMPRESSION: 1. No acute findings. 2. Advanced atrophy and microangiopathy. 3. Chronic lacunar infarcts Hip/Pelvis X-Ray 09/26/22 19:08 IMPRESSION: No acute bony findings Lumbar Spine CT 09/26/22 19:08 IMPRESSION: 1. Multilevel chronic degenerative changes. No fracture. 2. Chronic findings as described. Wrist X-Ray 09/26/22 19:08 IMPRESSION: No acute findings The Discharge Plan Discharge Patient Disposition: LTCH w Plan Readm Clinical Impression: Fall as cause of accidental injury at home as place of occurrence Condition: Stable Prescriptions: No Action metoprolol tartrate 50 mg tablet 50 mg PO BID Norvasc 5 mg tablet 10 mg PO DAILY alprazolam 0.25 mg tablet 0.25 mg PO TID PRN hydralazine 10 mg tablet 10 mg PO TID furosemide 80 mg tablet 80 mg PO QAM Qty: 90 1RF latanoprost 0.005 % Drops 1 drp ophthalmic (eye) BEDTIME Rx Instructions: to left eye Tylenol 325 mg Tablet 650 mg PO QID PRN (Reason: Mild Pain (Scale Score 1-4)) ipratropium-albuterol 0.5 mg-3 mg(2.5 mg base)/3 mL Solution For Nebulization 3 ml INHALATION Q6H PRN (Reason: Shortness Of Breath) Miralax 17 gram Powder In Packet 1 g PO DAILY Rx Instructions: mix with 4 oz. juice or water hydrocodone-acetaminophen 5-325 mg Tablet 1 tab PO BID PRN (Reason: Moderate Pain (Scale Score 5-6)) levothyroxine 25 mcg Tablet 25 mcg PO 0600 tamsulosin 0.4 mg Capsule 0.4 mg PO DAILY brimonidine 0.2 % Drops 1 drp OPHTHALMIC (EYE) BID Rx Instructions: to left eye twice daily Timoptic 0.5 % Drops 1 drp OPHTHALMIC (EYE) BID Rx Instructions: to both eyes dorzolamide 2 % Drops 1 drp OPHTHALMIC (EYE) TID Rx Instructions: to left eye Eliquis 2.5 mg Tablet 2.5 mg PO BID Discharge Orders: Discharge ED (Routine); Ordered 09/26/22 Ordered By: Ankur Beck Referrals: Diana Gil MD [Primary Care Provider] - Discharge Diet: Usual diet Discharge Activity: Resume usual activity and Bedrest Activity Restrictions/Additional Instructions: Your evaluation in the emergency department was reassuring in that there was no evidence of serious injury as a result of your fall. Should you develop any new or otherwise concerning symptoms notify the staff so that they can determine if you need reevaluation at any time. Coding Level of Care Code ED Feltmaker [employer] Weigher for Zainab Fwd Exam Comprehensive
== END 2022-09-26 21:19 ==
PROVIDERS: Emergency Provider Emergency Medicine; PCP Family Medicine
DX: M54.2 Cervicalgia (principal); M54.50 Low back pain, unspecified; Z79.01 Long term (current) use of anticoagulants; I11.0 Hypertensive heart disease with heart failure; I50.9 Heart failure, unspecified; I25.10 Atherosclerotic heart disease of native coronary artery without angina pectoris; Z86.73 Personal history of transient ischemic attack (TIA), and cerebral infarction without residual deficits; W17.89XA Other fall from one level to another, initial encounter; Y92.129 Unspecified place in nursing home as the place of occurrence of the external cause
CPT/HCPCS: 70450; 72125; 72128; 72131; 73110; 73502; 99284

== ENCOUNTER 2022-11-09 18:12 | Emergency (ER) | payer MEDICARE, BC, SELFPAY ==
[2022-11-09] VITALS (7 sets, daily range): BP systolic 177–183; BP diastolic 83–103; PULSE 74–94; RESP 16–22; TEMP 36.9; O2SAT 92–97
--- NOTE | 2022-11-09 18:29 | XRR_ITS ---
PROCEDURE INFORMATION: Exam: XR Chest Exam date and time: 11/09/2022 6:38 PM Age: 87 years old Clinical indication: Pain; Chest pressure; Additional info: Cp TECHNIQUE: Imaging protocol: Radiologic exam of the chest. Views: 1 view. COMPARISON: CT chest [facility] [id number] 02/15/2022 7:41 PM FINDINGS: Lungs: Mild chronic interstitial prominence in both lungs. No consolidation. Stable parenchymal scarring in the apices. Pleural spaces: Unremarkable. No pleural effusion. No pneumothorax. Heart/Mediastinum: Unremarkable. No cardiomegaly. Bones/joints: Thoracic scoliosis. XR/XR chest 1V portable [id number] IMPRESSION: No acute findings.
--- NOTE | 2022-11-09 18:30 | ECG_ITS ---
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 Measurements Intervals [place] Rate: 74 P: 0 MI: 0 QRS: 44 QRSD: 85 T: 53 QT: 403 QTc: 447 Interpretive Statements ATRIAL FIBRILLATION MODERATE ST DEPRESSION [0.05+ mV ST DEPRESSION] Compared to ECG 02/15/2022 18:41:47 ST (T wave) deviation now present Electronically Signed On 11-09-2022 22:24:27 DEMURRAGE MAN by Lalo Maldonado M.D. [id number]
--- NOTE | 2022-11-09 18:40 | ED_ITS ---
HPI - Chest Pain General: Chief Complaint: Chest Pain Stated Complaint: HYPERTENSION/ AFIB Time Seen by Provider: 11/09/22 18:16 Source: patient and EMS Mode of arrival: EMS Limitations: no limitations History of Present Illness: 87-year-old female is here from [facility] she has history of chronic pain she been complaining of pain in her shoulders and chest tonight she is also hypertensive there per EMS her pain had resolved when I went in her room she is complaining of pain all over she denies any shortness of breath she had no cough or fever. Associated symptoms: Deny abdominal pain, dyspnea, fever(s), nausea or vomiting Review of Systems Const: Denies: fever(s), chills, body aches or change in appetite Eyes: Denies: blurry vision or eye discomfort ENMT: Denies: throat pain or dental pain Card: Reports: chest pain Resp: Denies: dyspnea GI: Denies: abdominal pain, nausea, vomiting or diarrhea : Denies: dysuria Musc: Denies: neck pain or back pain Skin/Breast: Denies: rash Neuro: Denies: headache(s) Psych: Denies: depression Kw[place]/Lymph: Denies: easy bruising All/Imm: Denies: urticaria PFSH ED PFSH: Medical History Anxiety Arthritis Atrial fibrillation Back pain CHF (congestive heart failure) Preserved ejection fraction, moderate pulmonary hypertension, mild aortic valve stenosis Mild TR Chronic anticoagulation Coronary artery disease CVA (cerebral vascular accident) Right hemispheric stroke, residual left-sided weakness GERD (gastroesophageal reflux disease) Hyperkalemia Hypertension M?ni?re's disease Pulmonary hyperinflation Recurrent falls Ultrasound from 01/03 showed mild to moderate left renal atrophy Severe right renal atrophy Renal atrophy, bilateral Sleep apnea Thyroid disease Hypothyroidism TIA (transient ischemic attack) Surgical History H/O colonoscopy Polyp removal H/O knee surgery Previous back surgery Family History Father CAD (coronary artery disease) Sister Dementia Other Hypertension Denies family history of Diabetes Clotting disorder Chronic kidney disease (CKD) Suicide Anesthesia complication Bleeding disorder Lung disease Cancer Stroke Social History Smoking and tobacco status: never smoked Alcohol intake: never Housing: Detention Physical Exam Const: COMMON NORMALS: no acute distress, patient oriented x3 and healthy appearing HENMT: COMMON NORMALS: normocephalic and atraumatic HEAD & SCALP: normocephalic and atraumatic Eye: COMMON NORMALS: Equal, round and reactive pupils present and EOMs intact bilaterally PUPIL: Yes Equal, round and reactive pupils present Neck/C-Spine: COMMON NORMALS: full ROM and supple Chest: COMMONS NORMALS: normal inspection of the chest and normal palpation of entire chest wall Resp: COMMON NORMALS: normal respiratory effort, No retractions, No use of accessory muscles and clear to auscultation bilaterally AUSCULTATION: clear to auscultation bilaterally Cardio: COMMON NORMALS: regular rate and No murmurs present (Cardio) RATE: regular rate RHYTHM: abnormal rhythm irregularly irregular GI: COMMON NORMALS: Normal to inspection, nondistended, normoactive bowel sounds present, Soft to palpation, non-tender and no masses PALPATION: Yes Soft to palpation Extremity: COMMON NORMALS: normal to inspection and full ROM Neuro: COMMON NORMALS: patient oriented x3, moves all extremities and no focal motor deficits Psych: COMMON NORMALS: mental status grossly normal, Normal thought process present and cooperative THOUGHT PROCESS: Normal thought process present Skin: COMMON NORMALS: no rashes or lesions noted and no wounds GENERAL SKIN EXAM: no rashes or lesions noted Course Vital Signs: Vital signs: Vital Signs Temperature 98.5 F 11/09/22 18:14 Pulse Rate 91 11/09/22 21:30 Respiratory Rate 18 11/09/22 21:30 Blood Pressure 179/84 11/09/22 21:30 Pulse Oximetry 92 11/09/22 21:30 Oxygen Delivery Me thod 11/09/22 21:30 MDM - Chest Pain Medical Decision Making Patient presented chest pain initial repeat troponins are normal she is well- appearing here blood pressure is improved no signs acute coronary syndrome she is stable for discharge with follow-up with PCP and return if worsening. Lab Data 11/09/22 18:30 11/09/22 18:30 Radiology Impressions Chest X-Ray 11/09/22 18:29 IMPRESSION: No acute findings. Laboratory Results WBC 3.9 10^3/uL (4.0-10.0) L 11/09/22 18: RBC 4.34 10^6/uL (4.1-5.3) 11/09/22 18: Hgb 11.6 g/dL (11.5-15.3) 11/09/22 18: Hct 37.8 % (37.0-47.0) 11/09/22 18: MCV 87.1 fl (81-99) 11/09/22 18: MCH 26.7 pg (28.0-34.0) L 11/09/22 18: MCHC 30.7 g/dL (30.0-36.0) 11/09/22 18: RDW 17.2 % (12.1-15.1) H 11/09/22: Plt Count 283 10^3/cmm (130-400) 11/09/22: MPV 9.6 fL (7.4-10.4) 11/09/22 18: Neut % (Auto) 55.5 % 11/09/22 18: Lymph % (Auto) 24.9 % 11/09/22 18:30 Gates % (Auto) 12.5 % 11/09/22 18: Eos % (Auto) 5.1 % 11/09/22 18: Baso % (Auto) 1.0 % 11/09/22 18:30 Neut # (Auto) 2.18 10^3/uL (1.8-7.7) 11/09/22 18: Lymph # (Auto) 1.0 10^3/uL (0.8-4.8) 11/09/22 18:30 Gates # (Auto) 0.5 10^3/uL (0.2-0.9) 11/09/22 18: Eos # (Auto) 0.2 10^3/uL (0.0-0.8) 11/09/22 18: Baso # (Auto) 0.0 10^3/uL (0.0-0.1) 11/09/22 18:30 Nucleated RBC % (auto) 0 % 11/09/22 18: Nucleated RBCs # 0.0 /100WBC 11/09/22 18: Sodium 134 mmol/L (136-145) L 11/09/22 18:30 Potassium 4.2 mmol/L (3.5-5.1) 11/09/22 18:30 Chloride 97 mmol/L (98-107) L 11/09/22 18:30 Carbon Dioxide 28 mmol/L (22-29) 11/09/22 18:30 Anion Gap 13.2 (5-19) 11/09/22 18:30 BUN 59 mg/dL (8-23) H 11/09/22 18:30 Creatinine 1.5 mg/dL (0.5-0.9) H 11/09/22 18:30 GFR Calculation Not Reportable 11/09/22 18:30 Glucose 125 mg/dL (65-115) H 11/09/22 18:30 Calculated Osmolality 296 mOsm/kg (285-295) H 11/09/22 18:30 Calcium 9.9 mg/dL (8.5-10.5) 11/09/22 18:30 Total Bilirubin 0.2 mg/dL (0.15-1.2) 11/09/22 18:30 AST 22 U/L (0-32) 11/09/22 18:30 ALT 15 U/L (0-33) 11/09/22 18:30 Alkaline Phosphatase 128 U/L (35-105) H 11/09/22 18:30 Troponin T Baseline 72 ng/L (0-10) H 11/09/22 18:30 Troponin T 120 Minute 69.33 ng/L (0-10) H 11/09/22 20:26 Delta Troponin T -2.67 ABS# (0-10) L 11/09/22 20:26 Total Protein 9.0 g/dL (6.6-8.7) H 11/09/22 18:30 Albumin 3.5 g/dL (3.5-5.2) 11/09/22 18:30 Globulin 5.5 g/dL (1.3-4.6) H 11/09/22 18:30 EKG Data EKG 1: I personally reviewed and interpreted this EKG as follows: EKG interpretation date: 11/09/22 EKG interpretation time: 18:37 Interpretation: afib hr [address] or t wave abnormalities qrs 85 qtc 430 Discharge Plan Discharge Patient Disposition: Home Clinical Impression: Chest pain, Hypertension Condition: Stable Prescriptions: No Action metoprolol tartrate 50 mg tablet 50 mg PO BID Norvasc 5 mg tablet 10 mg PO DAILY alprazolam 0.25 mg tablet 0.25 mg PO TID PRN hydralazine 10 mg tablet 10 mg PO TID furosemide 80 mg tablet 80 mg PO QAM Qty: 90 1RF latanoprost 0.005 % Drops 1 drp ophthalmic (eye) BEDTIME Rx Instructions: to left eye Tylenol 325 mg Tablet 650 mg PO QID PRN (Reason: Mild Pain (Scale Score 1-4)) ipratropium-albuterol 0.5 mg-3 mg(2.5 mg base)/3 mL Solution For Nebulization 3 ml INHALATION Q6H PRN (Reason: Shortness Of Breath) Miralax 17 gram Powder In Packet 1 g PO DAILY Rx Instructions: mix with 4 oz. juice or water hydrocodone-acetaminophen 5-325 mg Tablet 1 tab PO BID PRN (Reason: Moderate Pain (Scale Score 5-6)) levothyroxine 25 mcg Tablet 25 mcg PO 0600 tamsulosin 0.4 mg Capsule 0.4 mg PO DAILY brimonidine 0.2 % Drops 1 drp OPHTHALMIC (EYE) BID Rx Instructions: to left eye twice daily Timoptic 0.5 % Drops 1 drp OPHTHALMIC (EYE) BID Rx Instructions: to both eyes dorzolamide 2 % Drops 1 drp OPHTHALMIC (EYE) TID Rx Instructions: to left eye Eliquis 2.5 mg Tablet 2.5 mg PO BID Discharge Orders: Discharge ED (Routine); Ordered 11/09/22 Ordered By: Jaun Pollack Referrals: Diana Gil MD [Primary Care Provider] - 1-3 days Discharge Diet: Advance as tolerated Discharge Activity: Resume usual activity Patient Instructions: Chest Pain (ED) Coding Level of Care Code ED 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
[2022-11-09] MEDS: hyDRALAzine 20 mg/mL INJ 1 mL 10 MG IVP ×2 (18:41→20:15)
[2022-11-09] MEDS: morphine 4 mg/mL SDV 1 mL IVP (18:42)
[2022-11-09] MEDS: ondansetron 2 mg/ML SDV 2 mL 4 MG IVP (18:42)
[2022-11-09 18:52] LABS: Eosinophils # 0.2 10^3/uL (0.0-0.8); Eosinophils % 5.1 %; Hematocrit 37.8 % (37.0-47.0); Hemoglobin 11.6 g/dL (11.5-15.3); Lymphocytes % 24.9 %; Mean Corpuscular HGB Conc 30.7 g/dL (30.0-36.0); Mean Corpuscular Hemoglobin 26.7 pg (28.0-34.0); Mean Corpuscular Volume 87.1 fl (81-99); Mean Platelet Volume 9.6 fL (7.4-10.4); Monocytes # 0.5 10^3/uL (0.2-0.9); Monocytes % 12.5 %; Neutrophils # 2.18 10^3/uL (1.8-7.7); Neutrophils % 55.5 %; Nucleated Red Blood Cells % 0 %; Platelet Count 283 10^3/cmm (130-400); Red Blood Count 4.34 10^6/uL (4.1-5.3); Red Cell Distribution Width 17.2 % (12.1-15.1); White Blood Count 3.9 10^3/uL (4.0-10.0)
[2022-11-09 19:04] LABS: Troponin(5th) Baseline 72 ng/L (0-10)
[2022-11-09 19:06] LABS: Alanine Aminotransferase 15 U/L (0-33); Albumin Level 3.5 g/dL (3.5-5.2); Alkaline Phosphatase 128 U/L (35-105); Anion Gap 13.2 (5-19); Aspartate Amino Transferase 22 U/L (0-32); Blood Urea Nitrogen 59 mg/dL (8-23); Calcium 9.9 mg/dL (8.5-10.5); Carbon Dioxide 28 mmol/L (22-29); Chloride 97 mmol/L (98-107); Globulin 5.5 g/dL (1.3-4.6); Glucose 125 mg/dL (65-115); Osmolality Calculated 296 mOsm/kg (285-295); Potassium 4.2 mmol/L (3.5-5.1); Sodium 134 mmol/L (136-145); Total Bilirubin 0.2 mg/dL (0.15-1.2)
--- NOTE | 2022-11-09 20:42 | ECG_ITS ---
[facility] Test Date: 2022-11-09 Pat Name: Rosio Sauer Department: Room: Gender: Female Sql Report Analyst: : 1935 Requested By: Jaun Pollack Order Number: [id number] Crista MD: Lalo Maldonado M.D. Measurements Intervals [place] Rate: 77 P: 0 LA: 0 QRS: 90 QRSD: 86 T: 21 QT: 402 QTc: 456 Interpretive Statements ATRIAL FIBRILLATION ABNORMAL RHYTHM ECG Compared to ECG 11/09/2022 18:37:24 ST (T wave) deviation no longer present Electronically Signed On 11-09-2022 22:30:45 LAB ASSISTANT by Lalo Maldonado M.D. [id number]
[2022-11-09] MEDS: HYDROmorphone 1 mg/mL INJ 1 mL 0.5 MG IVP (20:48)
[2022-11-09 21:02] LABS: Troponin 5 2HR 69.33 ng/L (0-10)
[2022-11-09 21:22] LABS: Troponin 5 2HR Delta -2.67 ABS# (0-10)
== END 2022-11-09 22:40 | disposition home or self-care (01) ==
PROVIDERS: Emergency Provider Emergency Medicine; PCP Family Medicine
DX: R07.9 Chest pain, unspecified (principal); Z79.01 Long term (current) use of anticoagulants; I11.0 Hypertensive heart disease with heart failure; I50.9 Heart failure, unspecified; I25.10 Atherosclerotic heart disease of native coronary artery without angina pectoris; Z86.73 Personal history of transient ischemic attack (TIA), and cerebral infarction without residual deficits
CPT/HCPCS: 71045; 80053; 84484; 85025; 93005; 96374; 96375; 96376; 99285; J0360; J1170; J2270; J2405